=== PATIENT | female | born 2000 | race Caucasian/White ===

== ENCOUNTER 2023-11-07 00:29 | Inpatient (IN) | payer OTHER, MEDICAID, SELFPAY ==
[2023-11-07] VITALS (223 sets, daily range): BP systolic 84–129; BP diastolic 45–78; PULSE 57–103; RESP 14–32; TEMP 36.6–36.9; O2SAT 97–100; BMI 22.3; BMI 25.6
--- NOTE | 2023-11-07 00:47 | DI.RAD.S_ITS ---
PROCEDURE: XR CHEST 1V INDICATIONS: OD/AMS TECHNIQUE: One view of the chest was acquired. COMPARISON: None. FINDINGS: Surgical changes and devices: Nasogastric tube moved is present with distal tip projecting below the left hemidiaphragm. Endotracheal tube is present distal tip approximately 1.2 cm superior to the flores. Lungs and pleura: Lungs are clear. No pleural effusions or pneumothorax. Mediastinum: Mediastinal contours appear normal. Heart size is normal. Bones and chest wall: No suspicious bony lesions. Overlying soft tissues appear unremarkable. IMPRESSION: Support lines in appropriate position as above. Dictated by: Beverly Sanchez M.D. on 11/07/2023 at 1:23 Approved by: Beverly Sanchez M.D. on 11/07/2023 at 1:24
--- NOTE | 2023-11-07 00:47 | DI.CT.S_ITS ---
PROCEDURE: CT HEAD/BRAIN WO CON INDICATIONS: OD/AMS TECHNIQUE: Noncontrast 4.5 mm thick angled axial sections acquired from the foramen magnum to the vertex, with coronal and sagittal reformats. For radiation dose reduction, the following was used: automated exposure control, adjustment of mA and/or kV according to patient size. COMPARISON: None. FINDINGS: Image quality: Diagnostic. CSF spaces: Basal cisterns are patent. No extra-axial fluid collections. Ventricles are normal in size and shape. Brain: No midline shift. No intracranial masses or hemorrhage. Casey-white matter interface is normal. Skull and face: Calvarium and visualized facial bones are intact, without suspicious lesions. Sinuses: Visualized sinuses and mastoids are clear. IMPRESSION: No acute intracranial pathology. Dictated by: Beverly Sanchez M.D. on 11/07/2023 at 1:35 Approved by: Beverly Sanchez M.D. on 11/07/2023 at 1:36
--- NOTE | 2023-11-07 00:48 | EKG_ITS ---
[address] [address] Test Date: 2023-11-07 Pat Name: Neha Ulloa Department: [facility] Room: Gender: Female [employer] Helper: : 2000 Requested By: Order Number: [id number] Reading MD: Young Cai MD Measurements Intervals Rye Rate: 85 P: 52 WA: 174 QRS: 52 QRSD: 82 T: 24 QT: 422 QTc: 502 Interpretive Statements Normal sinus rhythm Prolonged QT NO PRIOR TRACING Electronically Signed On 11-07-2023 8:05:15 PDT by Young Cai MD
[2023-11-07] MEDS: NALOXONE 0.4 MG/ML VIAL IV (00:49)
[2023-11-07] MEDS: NALOXONE 0.4 MG/ML VIAL 1.6 MG IV (00:49)
--- NOTE | 2023-11-07 01:00 | PC.NURSE ---
Pt arrives by EMS. Medic states that pt was thrashing about and not cooperating with cares. Medicated with IM Ketamine. Pt arrived to ED with shallow respirations, not protecting airway, guppy breathing noted. Dr Parekh in room. 50 mg of Rocuronium administrated under the supervision of Dr Parekh. Pt intubated pt with help of RT. Tube is 7.5 and 24 at the teeth. Narcan attempted with no effect. OG tube placed and verified by Xray. Placed to low intermittent suction. Dark brown stomach contents noted.
[2023-11-07 01:02] LABS: Add Manual Diff / Slide Review NO; Basophils Absolute Auto 0 /uL (0-100); Basophils Percent Auto 0.3 % (0-2); Eosinophils Absolute Auto 0 /uL (0-450); Eosinophils Percent Auto 0.1 % (2-4); Hematocrit 37.1 % (36-46); Hemoglobin 12.7 g/dL (12.0-16.0); Lymphocytes Absolute Auto 3300 /uL (1100-4500); Lymphocytes Percent Auto 41.2 % (25-40); Mean Corpuscular HGB Conc 34.2 % (30-36); Mean Corpuscular Volume 90.8 fL (80-100); Monocytes Absolute Auto 900 /uL (0-900); Monocytes Percent Auto 11.9 % (3-14); Neutrophils Absolute Auto 3700 /uL (1500-7000); Neutrophils Percent Auto 46.5 % (50-75); Platelet Count 321 X10^3/uL (150-400); Red Blood Cell Count 4.09 X10^6/uL (4.0-5.2); Red Cell Distribution Width 13.7 % (11.6-14.8); White Blood Cell Count 7.9 X10^3/uL (4.5-11.0)
[2023-11-07 01:04] LABS: Acetaminophen < 10 ug/mL (10-30); Alanine Aminotransferase 20 IU/L (<35); Albumin 4.5 g/dL (3.5-5.0); Albumin Globulin Ratio 1.5 (1.0-2.8); Alkaline Phosphatase 64 U/L (38-126); Aspartate Aminotransferase 25 IU/L (14-36); BUN Creatinine Ratio 3.6 (6-22); Bilirubin Total 0.5 mg/dL (0.2-1.3); Blood Urea Nitrogen 3 mg/dL (7-17); Calcium 8.4 mg/dL (8.4-10.2); Carbon Dioxide 21 mmol/L (22-32); Chloride 111 mmol/L (98-107); Estimated Glomerular Filt Rate > 60 mL/min (>60); Globulin 3.1 g/dL (1.7-4.1); Glucose 99 mg/dL (70-100); HEMOLYSIS 18 (0-50); Potassium 3.2 mmol/L (3.4-5.1); Salicylate < 1.0 mg/dL (<20); Sodium 145 mmol/L (137-145); Total Protein 7.6 g/dL (6.3-8.2)
[2023-11-07] MEDS: SODIUM CHLORIDE 0.9% 1,000 ML 1000 ML IV (01:06)
[2023-11-07 01:09] LABS: Lactate (Lactic Acid) 4.6 mmol/L (0.7-2.1)
--- NOTE | 2023-11-07 01:10 | ED_ITS ---
HPI - Altered Mental Status <Trudi Parekh MD - Last Filed: 11/07/23 19:23> General Chief Complaint: Upper Respiratory Symptoms Stated Complaint: STEFAN Time Seen by Provider: 11/07/23 00:30 Source: EMS Mode of arrival: EMS History of Present Illness HPI narrative: 23-year-old female with unknown past medical history presents as an STEFAN with law enforcement. Patient was reportedly found outside rolling around on the ground and screaming. She was extremely agitated and required numerous law enforcement personnel to restrain the patient. She continued to be extremely agitated and not following commands and so EMS personnel administered 300 mg of IM ketamine for sedation. Patient arrived extremely somnolent, not following commands. Initially arrived as a Marcelle Sanford Related Data Allergies Allergy/AdvReac Type Severity Reaction Status Date / Time No Known Drug Allergies Allergy Verified 11/07/23 01:27 Exam <Trudi Parekh MD - Last Filed: 11/07/23 19:23> Initial Vital Signs Initial Vital Signs: Vital Signs Pulse Rate 94 H 11/07/23 00:36 Respiratory Rate 14 11/07/23 00:36 Blood Pressure 129/78 11/07/23 00:36 Pulse Oximetry 97 11/07/23 00:36 Oxygen Delivery Method Nasal Cannula 11/07/23 00:36 Oxygen Flow Rate 3 11/07/23 00:36 Const: Eyes closed, not responding to sternal rub, breathing spontaneously Cardiac: regular rate, regular rhythm RESP: Irregular, shallow MSK: Atraumatic, no deformity, pulses equal Skin: Warm, Dry, intact, no rashes Neuro: GCS 3 <Julio Chilel DO - Last Filed: 11/07/23 07:29> Initial Vital Signs Initial Vital Signs: Vital Signs Pulse Rate 94 H 11/07/23 00:36 Respiratory Rate 14 11/07/23 00:36 Blood Pressure 129/78 11/07/23 00:36 Pulse Oximetry 97 11/07/23 00:36 Oxygen Delivery Method Nasal Cannula 11/07/23 00:36 Oxygen Flow Rate 3 11/07/23 00:36 Procedures <Trudi Parekh MD - Last Filed: 11/07/23 19:23> Intubation Time out performed: Yes sedative: none paralytic: Rocuronium Mg Given: 50 Laryngoscope: Allie ET Tube Size: 7.5 ET Tube Uncuffed: No Tube Secured Depth (cm): 24 Tube Secured Location: teeth Tube Placement Confirmation: Visualized tube passing through cords, Equal breath sounds bilaterally, No breath sounds over epigastrium, Confirmation by capnometry and Chest Xray Patient Tolerated Procedure: Well and No complications Intubation Complications: none Course <Trudi Parekh MD - Last Filed: 11/07/23 19:23> Orders Ordered: ED Orders 11/07/23 11:32 Ventilator Order Chlorhexidine Gluconate (Chlorhexidine Gluconate 15 Ml Cup) 15 ml PO Q6HR [facility] Last Admin: 11/07/23 17:41 Dose: 15 ml Documented By: Admin: 11/07/23 13:56 Dose: 15 ml Documented By: Admin: 11/07/23 08:39 Dose: 15 ml Documented By: Enoxaparin Sodium (Enoxaparin 40 Mg/0.4 Ml Syringe) 40 mg SUBCUT DAILY [facility] Last Admin: 11/07/23 12:05 Dose: 40 mg Documented By: BARRY Propofol (Propofol) 1,000 mg in 100 mls @ 17.69 mls/hr IV TITRATE RAHUL; Protocol Last Titration: 11/07/23 16:55 Dose: 35 mcg/kg/min, 12.383 mls/hr Documented By: Admin: 11/07/23 15:14 Dose: 40 mcg/kg/min, 14.152 mls/hr Documented By: Titration: 11/07/23 15:14 Dose: Infused Documented By: Titration: 11/07/23 13:30 Dose: 40 mcg/kg/min, 14.152 mls/hr Documented By: Admin: 11/07/23 11:56 Dose: 50 mcg/kg/min, 17.69 mls/hr Documented By: Titration: 11/07/23 11:56 Dose: Infused Documented By: Titration: 11/07/23 11:17 Dose: 70 mcg/kg/min, 24.766 mls/hr Documented By: Admin: 11/07/23 11:05 Dose: 60 mcg/kg/min, 21.228 mls/hr Documented By: Sodium Chloride (Normal Saline 0.9%) 1,000 mls @ 75 mls/hr IV CONT [facility] Last Admin: 11/07/23 11:59 Dose: 75 mls/hr Documented By: BARRY Fentanyl 1,000 mcg/ Dextrose 250 mls @ 10.319 mls/hr IV TITRATE RAHUL; Protocol Last Admin: 11/07/23 11:57 Dose: 0.7 mcg/kg/hr, 10.319 mls/hr Documented By: BARRY dexmedeTOMIDine in 0.9 % NaCL (Precedex) 400 mcg in 100 mls @ 2.948 mls/hr IV TITRATE RAHUL; Protocol Last Admin: 11/07/23 16:53 Dose: 1 mcg/kg/hr, 14.742 mls/hr Documented By: Titration: 11/07/23 16:53 Dose: Infused Documented By: Titration: 11/07/23 12:04 Dose: 1 mcg/kg/hr, 14.742 mls/hr Documented By: Admin: 11/07/23 12:02 Dose: 1 mcg/kg/hr, 14.742 mls/hr Documented By: BARRY Naloxone HCl (Naloxone 0.4 Mg/Ml Vial) 0.2 mg IV Q2MIN PRN PRN Reason: Opiate Reversal Discontinued Medications Folic Acid (Folic Acid 1 Mg Tablet) 1 mg PO NOW ONE Stop: 11/07/23 01:12 Last Admin: 11/07/23 07:24 Dose: Not Given Documented By: Sodium Chloride (Normal Saline 0.9%) 1,000 mls @ 1,000 mls/hr IV BOLUS ONE Stop: 11/07/23 01:46 Last Infusion: 11/07/23 03:03 Dose: Infused Documented By: Admin: 11/07/23 01:06 Dose: 1,000 mls/hr Documented By: PILLO Propofol (Propofol) 1,000 mg in 100 mls @ 17.69 mls/hr IV TITRATE RAHUL; Protocol Last Titration: 11/07/23 10:46 Dose: Infused Documented By: Titration: 11/07/23 10:45 Dose: Infused Documented By: Titration: 11/07/23 09:51 Dose: 50 mcg/kg/min, 17.69 mls/hr Documented By: Titration: 11/07/23 09:27 Dose: 50 mcg/kg/min, 17.69 mls/hr Documented By: Titration: 11/07/23 08:27 Dose: 40 mcg/kg/min, 14.152 mls/hr Documented By: Titration: 11/07/23 07:56 Dose: 20 mcg/kg/min, 7.076 mls/hr Documented By: Titration: 11/07/23 07:20 Dose: 15 mcg/kg/min, 5.307 mls/hr Documented By: Admin: 11/07/23 06:35 Dose: 20 mcg/kg/min, 7.076 mls/hr Documented By: Titration: 11/07/23 06:35 Dose: Infused Documented By: Admin: 11/07/23 03:21 Dose: 35 mcg/kg/min, 12.383 mls/hr Documented By: Titration: 11/07/23 03:21 Dose: Infused Documented By: Admin: 11/07/23 02:15 Dose: 15 mcg/kg/min, 5.307 mls/hr Documented By: Thiamine HCl 200 mg/ Sodium (Chloride) 102 mls @ 408 mls/hr IV NOW ONE Stop: 11/07/23 01:12 Last Infusion: 11/07/23 03:03 Dose: Infused Documented By: Admin: 11/07/23 01:59 Dose: 408 mls/hr Documented By: POTASSIUM CHLORIDE IN WATER (Potassium Cl 10 Meq/100 Ml Tiffani) 10 meq in 100 mls @ 100 mls/hr IV Q1H RAHUL Stop: 11/07/23 18:29 Last Admin: 11/07/23 17:37 Dose: 100 mls/hr Documented By: Infusion: 11/07/23 17:36 Dose: Infused Documented By: Admin: 11/07/23 16:36 Dose: 100 mls/hr Documented By: Infusion: 11/07/23 16:35 Dose: Infused Documented By: Admin: 11/07/23 15:35 Dose: 100 mls/hr Documented By: Infusion: 11/07/23 15:34 Dose: Infused Documented By: Admin: 11/07/23 14:34 Dose: 100 mls/hr Documented By: BARRY Naloxone HCl (Naloxone 1 Mg/Ml Syringe) 2 mg IV NOW ONE Stop: 11/07/23 00:48 Last Admin: 11/07/23 01:10 Dose: Not Given Documented By: PILLO Pantoprazole Sodium (Pantoprazole 40 Mg Vial) 80 mg IV NOW ONE Stop: 11/07/23 05:18 Last Admin: 11/07/23 05:21 Dose: 80 mg Documented By: Vital Signs Vital signs: Vital Signs - 8 hr 11/07/23 00:36 11/07/23 01:21 11/07/23 01:32 Pulse Rate 94 H Respiratory Rate 14 Blood Pressure 129/78 97/57 L Pulse Oximetry 97 99 Oxygen Delivery Method Nasal Cannula Mechanical Ventilation Oxygen Flow Rate 3 Fraction of Inspired Oxygen 11/07/23 01:32 11/07/23 01:34 11/07/23 01:34 Pulse Rate 87 86 Respiratory Rate 20 20 Blood Pressure 97/53 L Pulse Oximetry 100 100 Oxygen Delivery Method Mechanical Ventilation Mechanical Ventilation Oxygen Flow Rate Fraction of Inspired Oxygen 11/07/23 01:36 11/07/23 01:36 11/07/23 01:38 Pulse Rate 82 Respiratory Rate 20 Blood Pressure 96/55 L 104/57 L Pulse Oximetry 100 Oxygen Delivery Method Oxygen Flow Rate Fraction of Inspired Oxygen 11/07/23 01:38 11/07/23 01:40 11/07/23 01:40 Pulse Rate 83 86 Respiratory Rate 20 20 Blood Pressure 103/59 L Pulse Oximetry 100 100 Oxygen Delivery Method Oxygen Flow Rate Fraction of Inspired Oxygen 11/07/23 01:42 11/07/23 01:42 11/07/23 01:44 Pulse Rate 83 85 Respiratory Rate 26 H 20 Blood Pressure 103/59 L Pulse Oximetry 100 100 Oxygen Delivery Method Mechanical Ventilation Oxygen Flow Rate Fraction of Inspired Oxygen 11/07/23 01:44 11/07/23 01:46 11/07/23 01:46 Pulse Rate 82 Respiratory Rate 20 Blood Pressure 105/57 L 102/55 L Pulse Oximetry 100 Oxygen Delivery Method Mechanical Ventilation Oxygen Flow Rate Fraction of Inspired Oxygen 11/07/23 01:48 11/07/23 01:48 11/07/23 01:50 Pulse Rate 84 Respiratory Rate 32 H Blood Pressure 102/63 107/65 Pulse Oximetry 99 Oxygen Delivery Method Oxygen Flow Rate Fraction of Inspired Oxygen 11/07/23 01:50 11/07/23 01:52 11/07/23 01:52 Pulse Rate 97 H 89 Respiratory Rate 20 25 H Blood Pressure 105/61 Pulse Oximetry 99 99 Oxygen Delivery Method Oxygen Flow Rate Fraction of Inspired Oxygen 11/07/23 01:54 11/07/23 01:54 11/07/23 01:56 Pulse Rate 93 H 87 Respiratory Rate 22 20 Blood Pressure 108/70 Pulse Oximetry 99 99 Oxygen Delivery Method Oxygen Flow Rate Fraction of Inspired Oxygen 11/07/23 01:56 11/07/23 01:58 11/07/23 01:58 Pulse Rate 93 H Respiratory Rate 25 H Blood Pressure 103/66 109/61 Pulse Oximetry 99 Oxygen Delivery Method Oxygen Flow Rate Fraction of Inspired Oxygen 11/07/23 02:00 11/07/23 02:00 11/07/23 02:02 Pulse Rate 94 H 90 Respiratory Rate 20 20 Blood Pressure 103/55 L Pulse Oximetry 99 100 Oxygen Delivery Method Oxygen Flow Rate Fraction of Inspired Oxygen 11/07/23 02:02 11/07/23 02:04 11/07/23 02:04 Pulse Rate 88 Respiratory Rate 20 Blood Pressure 96/53 L 94/53 L Pulse Oximetry 100 Oxygen Delivery Method Oxygen Flow Rate Fraction of Inspired Oxygen 11/07/23 02:06 11/07/23 02:06 11/07/23 02:08 Pulse Rate 90 Respiratory Rate 20 Blood Pressure 92/53 L 94/52 L Pulse Oximetry 100 Oxygen Delivery Method Oxygen Flow Rate Fraction of Inspired Oxygen 11/07/23 02:08 11/07/23 02:10 11/07/23 02:10 Pulse Rate 90 87 Respiratory Rate 20 20 Blood Pressure 95/52 L Pulse Oximetry 100 100 Oxygen Delivery Method Oxygen Flow Rate Fraction of Inspired Oxygen 11/07/23 02:12 11/07/23 02:12 11/07/23 02:14 Pulse Rate 87 89 Respiratory Rate 20 20 Blood Pressure 98/54 L Pulse Oximetry 100 99 Oxygen Delivery Method Oxygen Flow Rate Fraction of Inspired Oxygen 11/07/23 02:14 11/07/23 02:16 11/07/23 02:16 Pulse Rate 88 Respiratory Rate 20 Blood Pressure 96/57 L 92/55 L Pulse Oximetry 100 Oxygen Delivery Method Oxygen Flow Rate Fraction of Inspired Oxygen 11/07/23 02:18 11/07/23 02:18 11/07/23 02:20 Pulse Rate 87 88 Respiratory Rate 20 20 Blood Pressure 96/54 L Pulse Oximetry 100 100 Oxygen Delivery Method Oxygen Flow Rate Fraction of Inspired Oxygen 11/07/23 02:20 11/07/23 02:22 11/07/23 02:22 Pulse Rate 87 Respiratory Rate 20 Blood Pressure 95/58 L 96/57 L Pulse Oximetry 100 Oxygen Delivery Method Oxygen Flow Rate Fraction of Inspired Oxygen 11/07/23 02:24 11/07/23 02:24 11/07/23 02:26 Pulse Rate 87 87 Respiratory Rate 20 20 Blood Pressure 95/56 L Pulse Oximetry 100 100 Oxygen Delivery Method Oxygen Flow Rate Fraction of Inspired Oxygen 11/07/23 02:26 11/07/23 02:28 11/07/23 02:28 Pulse Rate 88 Respiratory Rate 20 Blood Pressure 97/56 L 99/58 L Pulse Oximetry 100 Oxygen Delivery Method Oxygen Flow Rate Fraction of Inspired Oxygen 11/07/23 02:29 11/07/23 02:30 11/07/23 02:30 Pulse Rate 86 Respiratory Rate 20 Blood Pressure 97/56 L Pulse Oximetry 100 Oxygen Delivery Method Oxygen Flow Rate Fraction of Inspired Oxygen 40 11/07/23 02:32 11/07/23 02:32 11/07/23 02:34 Pulse Rate 85 84 Respiratory Rate 20 20 Blood Pressure 96/55 L Pulse Oximetry 100 100 Oxygen Delivery Method Oxygen Flow Rate Fraction of Inspired Oxygen 11/07/23 02:34 11/07/23 02:36 11/07/23 02:36 Pulse Rate 82 Respiratory Rate 20 Blood Pressure 94/55 L 93/54 L Pulse Oximetry 100 Oxygen Delivery Method Oxygen Flow Rate Fraction of Inspired Oxygen 11/07/23 02:38 11/07/23 02:38 11/07/23 02:40 Pulse Rate 81 Respiratory Rate 20 Blood Pressure 95/54 L 95/53 L Pulse Oximetry 100 Oxygen Delivery Method Oxygen Flow Rate Fraction of Inspired Oxygen 11/07/23 02:40 11/07/23 02:42 11/07/23 02:42 Pulse Rate 80 79 Respiratory Rate 20 20 Blood Pressure 95/55 L Pulse Oximetry 100 100 Oxygen Delivery Method Oxygen Flow Rate Fraction of Inspired Oxygen 11/07/23 02:44 11/07/23 02:44 11/07/23 02:46 Pulse Rate 79 77 Respiratory Rate 20 20 Blood Pressure 96/54 L Pulse Oximetry 100 100 Oxygen Delivery Method Oxygen Flow Rate Fraction of Inspired Oxygen 11/07/23 02:46 11/07/23 02:48 11/07/23 02:48 Pulse Rate 83 Respiratory Rate 20 Blood Pressure 96/56 L 103/67 Pulse Oximetry 100 Oxygen Delivery Method Oxygen Flow Rate Fraction of Inspired Oxygen 11/07/23 02:50 11/07/23 02:50 11/07/23 02:52 Pulse Rate 90 87 Respiratory Rate 18 20 Blood Pressure 101/66 Pulse Oximetry 100 100 Oxygen Delivery Method Oxygen Flow Rate Fraction of Inspired Oxygen 11/07/23 02:52 11/07/23 02:54 11/07/23 02:54 Pulse Rate 86 Respiratory Rate 20 Blood Pressure 101/62 99/58 L Pulse Oximetry 100 Oxygen Delivery Method Oxygen Flow Rate Fraction of Inspired Oxygen 11/07/23 02:56 11/07/23 02:56 11/07/23 02:58 Pulse Rate 87 88 Respiratory Rate 20 20 Blood Pressure 97/55 L Pulse Oximetry 100 100 Oxygen Delivery Method Oxygen Flow Rate Fraction of Inspired Oxygen 11/07/23 02:58 11/07/23 03:00 11/07/23 03:00 Pulse Rate 85 Respiratory Rate 20 Blood Pressure 97/55 L 98/55 L Pulse Oximetry 100 Oxygen Delivery Method Oxygen Flow Rate Fraction of Inspired Oxygen 11/07/23 03:02 11/07/23 03:02 11/07/23 03:04 Pulse Rate 87 85 Respiratory Rate 20 20 Blood Pressure 101/60 Pulse Oximetry 100 100 Oxygen Delivery Method Oxygen Flow Rate Fraction of Inspired Oxygen 11/07/23 03:04 11/07/23 03:06 11/07/23 03:06 Pulse Rate 85 Respiratory Rate 20 Blood Pressure 98/57 L 104/57 L Pulse Oximetry 100 Oxygen Delivery Method Oxygen Flow Rate Fraction of Inspired Oxygen 11/07/23 03:08 11/07/23 03:08 11/07/23 03:10 Pulse Rate 86 Respiratory Rate 20 Blood Pressure 102/57 L 104/59 L Pulse Oximetry 100 Oxygen Delivery Method Oxygen Flow Rate Fraction of Inspired Oxygen 11/07/23 03:10 11/07/23 03:12 11/07/23 03:12 Pulse Rate 86 84 Respiratory Rate 20 20 Blood Pressure 104/59 L Pulse Oximetry 100 100 Oxygen Delivery Method Oxygen Flow Rate Fraction of Inspired Oxygen 11/07/23 03:14 11/07/23 03:14 11/07/23 03:16 Pulse Rate 84 85 Respiratory Rate 20 24 Blood Pressure 103/58 L Pulse Oximetry 100 100 Oxygen Delivery Method Oxygen Flow Rate Fraction of Inspired Oxygen 11/07/23 03:16 11/07/23 03:18 11/07/23 03:18 Pulse Rate 87 Respiratory Rate 20 Blood Pressure 99/59 L 100/59 L Pulse Oximetry 100 Oxygen Delivery Method Oxygen Flow Rate Fraction of Inspired Oxygen 11/07/23 03:20 11/07/23 03:20 11/07/23 03:22 Pulse Rate 86 Respiratory Rate 20 Blood Pressure 98/57 L 95/57 L Pulse Oximetry 100 Oxygen Delivery Method Oxygen Flow Rate Fraction of Inspired Oxygen 11/07/23 03:22 11/07/23 03:46 11/07/23 03:46 Pulse Rate 90 86 Respiratory Rate 20 20 Blood Pressure 99/55 L Pulse Oximetry 100 100 Oxygen Delivery Method Oxygen Flow Rate Fraction of Inspired Oxygen 11/07/23 03:48 11/07/23 03:48 11/07/23 03:50 Pulse Rate 87 87 Respiratory Rate 20 20 Blood Pressure 102/56 L Pulse Oximetry 100 100 Oxygen Delivery Method Oxygen Flow Rate Fraction of Inspired Oxygen 11/07/23 03:50 11/07/23 03:52 11/07/23 03:52 Pulse Rate 87 Respiratory Rate 21 Blood Pressure 100/58 L 102/60 Pulse Oximetry 100 Oxygen Delivery Method Oxygen Flow Rate Fraction of Inspired Oxygen 11/07/23 03:54 11/07/23 03:54 11/07/23 03:56 Pulse Rate 90 84 Respiratory Rate 19 20 Blood Pressure 108/57 L Pulse Oximetry 100 100 Oxygen Delivery Method Oxygen Flow Rate Fraction of Inspired Oxygen 11/07/23 03:56 11/07/23 03:58 11/07/23 03:58 Pulse Rate 85 Respiratory Rate 20 Blood Pressure 95/54 L 95/51 L Pulse Oximetry 100 Oxygen Delivery Method Oxygen Flow Rate Fraction of Inspired Oxygen 11/07/23 04:00 11/07/23 04:00 11/07/23 04:02 Pulse Rate 86 86 Respiratory Rate 20 20 Blood Pressure 99/58 L Pulse Oximetry 100 100 Oxygen Delivery Method Oxygen Flow Rate Fraction of Inspired Oxygen 11/07/23 04:02 11/07/23 04:04 11/07/23 04:04 Pulse Rate 87 Respiratory Rate 20 Blood Pressure 100/55 L 103/57 L Pulse Oximetry 100 Oxygen Delivery Method Oxygen Flow Rate Fraction of Inspired Oxygen 11/07/23 04:06 11/07/23 04:06 11/07/23 04:08 Pulse Rate 86 86 Respiratory Rate 20 20 Blood Pressure 104/58 L Pulse Oximetry 100 100 Oxygen Delivery Method Oxygen Flow Rate Fraction of Inspired Oxygen 11/07/23 04:08 11/07/23 04:10 11/07/23 04:10 Pulse Rate 87 Respiratory Rate 20 Blood Pressure 106/59 L 106/63 Pulse Oximetry 100 Oxygen Delivery Method Oxygen Flow Rate Fraction of Inspired Oxygen 11/07/23 04:12 11/07/23 04:12 11/07/23 04:14 Pulse Rate 87 86 Respiratory Rate 20 20 Blood Pressure 108/64 Pulse Oximetry 100 100 Oxygen Delivery Method Oxygen Flow Rate Fraction of Inspired Oxygen 11/07/23 04:14 11/07/23 04:16 11/07/23 04:16 Pulse Rate 86 Respiratory Rate 20 Blood Pressure 104/62 103/59 L Pulse Oximetry 100 Oxygen Delivery Method Oxygen Flow Rate Fraction of Inspired Oxygen 11/07/23 04:18 11/07/23 04:18 11/07/23 04:20 Pulse Rate 87 89 Respiratory Rate 20 20 Blood Pressure 101/58 L Pulse Oximetry 100 100 Oxygen Delivery Method Oxygen Flow Rate Fraction of Inspired Oxygen 11/07/23 04:20 11/07/23 04:22 11/07/23 04:22 Pulse Rate 89 Respiratory Rate 20 Blood Pressure 101/59 L 102/59 L Pulse Oximetry 100 Oxygen Delivery Method Oxygen Flow Rate Fraction of Inspired Oxygen 11/07/23 04:24 11/07/23 04:24 11/07/23 04:26 Pulse Rate 89 87 Respiratory Rate 20 20 Blood Pressure 103/58 L Pulse Oximetry 100 100 Oxygen Delivery Method Oxygen Flow Rate Fraction of Inspired Oxygen 11/07/23 04:26 11/07/23 04:28 11/07/23 04:28 Pulse Rate 86 Respiratory Rate 20 Blood Pressure 104/61 105/59 L Pulse Oximetry 100 Oxygen Delivery Method Oxygen Flow Rate Fraction of Inspired Oxygen 11/07/23 04:30 11/07/23 04:30 11/07/23 04:32 Pulse Rate 88 90 Respiratory Rate 20 20 Blood Pressure 106/61 Pulse Oximetry 100 100 Oxygen Delivery Method Oxygen Flow Rate Fraction of Inspired Oxygen 11/07/23 04:32 11/07/23 04:34 11/07/23 04:34 Pulse Rate 84 Respiratory Rate 20 Blood Pressure 108/61 98/53 L Pulse Oximetry 100 Oxygen Delivery Method Oxygen Flow Rate Fraction of Inspired Oxygen 11/07/23 04:56 11/07/23 04:56 11/07/23 04:58 Pulse Rate 83 81 Respiratory Rate 20 20 Blood Pressure 107/61 Pulse Oximetry 100 100 Oxygen Delivery Method Oxygen Flow Rate Fraction of Inspired Oxygen 11/07/23 04:58 11/07/23 05:00 11/07/23 05:00 Pulse Rate 80 Respiratory Rate 20 Blood Pressure 100/56 L 96/54 L Pulse Oximetry 100 Oxygen Delivery Method Oxygen Flow Rate Fraction of Inspired Oxygen 11/07/23 05:02 11/07/23 05:02 11/07/23 05:04 Pulse Rate 80 80 Respiratory Rate 20 20 Blood Pressure 92/51 L Pulse Oximetry 100 100 Oxygen Delivery Method Oxygen Flow Rate Fraction of Inspired Oxygen 11/07/23 05:04 11/07/23 05:06 11/07/23 05:06 Pulse Rate 80 Respiratory Rate 20 Blood Pressure 92/50 L 95/52 L Pulse Oximetry 100 Oxygen Delivery Method Oxygen Flow Rate Fraction of Inspired Oxygen 11/07/23 05:08 11/07/23 05:08 11/07/23 05:10 Pulse Rate 80 80 Respiratory Rate 20 20 Blood Pressure 93/51 L Pulse Oximetry 99 99 Oxygen Delivery Method Oxygen Flow Rate Fraction of Inspired Oxygen 11/07/23 05:10 11/07/23 05:12 11/07/23 05:12 Pulse Rate 83 Respiratory Rate 20 Blood Pressure 95/53 L 97/54 L Pulse Oximetry 100 Oxygen Delivery Method Oxygen Flow Rate Fraction of Inspired Oxygen 11/07/23 05:14 11/07/23 05:14 11/07/23 05:16 Pulse Rate 87 92 H Respiratory Rate 20 19 Blood Pressure 108/67 Pulse Oximetry 100 100 Oxygen Delivery Method Oxygen Flow Rate Fraction of Inspired Oxygen 11/07/23 05:16 11/07/23 05:18 11/07/23 05:18 Pulse Rate 91 H Respiratory Rate 20 Blood Pressure 105/68 103/61 Pulse Oximetry 100 Oxygen Delivery Method Oxygen Flow Rate Fraction of Inspired Oxygen 11/07/23 05:20 11/07/23 05:20 11/07/23 05:22 Pulse Rate 87 85 Respiratory Rate 20 20 Blood Pressure 94/52 L Pulse Oximetry 100 99 Oxygen Delivery Method Oxygen Flow Rate Fraction of Inspired Oxygen 11/07/23 05:22 11/07/23 05:23 11/07/23 05:23 Pulse Rate 85 Respiratory Rate 20 Blood Pressure 90/55 L 90/55 L Pulse Oximetry 99 Oxygen Delivery Method Oxygen Flow Rate Fraction of Inspired Oxygen 11/07/23 05:24 11/07/23 05:24 11/07/23 05:26 Pulse Rate 84 83 Respiratory Rate 20 20 Blood Pressure 89/54 L Pulse Oximetry 99 99 Oxygen Delivery Method Oxygen Flow Rate Fraction of Inspired Oxygen 11/07/23 05:26 11/07/23 05:28 11/07/23 05:28 Pulse Rate 82 Respiratory Rate 20 Blood Pressure 89/50 L 91/52 L Pulse Oximetry 99 Oxygen Delivery Method Oxygen Flow Rate Fraction of Inspired Oxygen 11/07/23 05:30 11/07/23 05:30 11/07/23 05:32 Pulse Rate 84 80 Respiratory Rate 20 20 Blood Pressure 89/51 L Pulse Oximetry 99 100 Oxygen Delivery Method Oxygen Flow Rate Fraction of Inspired Oxygen 11/07/23 05:32 11/07/23 05:34 11/07/23 05:34 Pulse Rate 79 Respiratory Rate 20 Blood Pressure 93/54 L 89/54 L Pulse Oximetry 100 Oxygen Delivery Method Oxygen Flow Rate Fraction of Inspired Oxygen 11/07/23 05:36 11/07/23 05:36 11/07/23 05:38 Pulse Rate 79 Respiratory Rate 20 Blood Pressure 87/52 L 87/52 L Pulse Oximetry 100 Oxygen Delivery Method Oxygen Flow Rate Fraction of Inspired Oxygen 11/07/23 05:38 11/07/23 05:40 11/07/23 05:40 Pulse Rate 78 78 Respiratory Rate 20 20 Blood Pressure 86/51 L Pulse Oximetry 100 99 Oxygen Delivery Method Oxygen Flow Rate Fraction of Inspired Oxygen 11/07/23 05:42 11/07/23 05:42 11/07/23 05:45 Pulse Rate 78 89 Respiratory Rate 20 20 Blood Pressure 89/51 L Pulse Oximetry 100 100 Oxygen Delivery Method Oxygen Flow Rate Fraction of Inspired Oxygen 11/07/23 05:45 11/07/23 05:46 11/07/23 05:46 Pulse Rate 88 Respiratory Rate 20 Blood Pressure 99/61 100/58 L Pulse Oximetry 100 Oxygen Delivery Method Oxygen Flow Rate Fraction of Inspired Oxygen 11/07/23 05:48 11/07/23 05:48 11/07/23 05:50 Pulse Rate 85 84 Respiratory Rate 20 20 Blood Pressure 98/57 L Pulse Oximetry 100 100 Oxygen Delivery Method Oxygen Flow Rate Fraction of Inspired Oxygen 11/07/23 05:50 11/07/23 05:52 11/07/23 05:52 Pulse Rate 84 Respiratory Rate 20 Blood Pressure 97/56 L 95/52 L Pulse Oximetry 100 Oxygen Delivery Method Oxygen Flow Rate Fraction of Inspired Oxygen 11/07/23 06:28 11/07/23 06:28 11/07/23 06:30 Pulse Rate 93 H 88 Respiratory Rate 20 20 Blood Pressure 105/66 Pulse Oximetry 100 100 Oxygen Delivery Method Oxygen Flow Rate Fraction of Inspired Oxygen 11/07/23 06:30 11/07/23 06:32 11/07/23 06:32 Pulse Rate 85 Respiratory Rate 20 Blood Pressure 106/64 100/60 Pulse Oximetry 100 Oxygen Delivery Method Oxygen Flow Rate Fraction of Inspired Oxygen 11/07/23 06:34 11/07/23 06:34 11/07/23 06:36 Pulse Rate 84 Respiratory Rate 20 Blood Pressure 99/60 101/58 L Pulse Oximetry 100 Oxygen Delivery Method Oxygen Flow Rate Fraction of Inspired Oxygen 11/07/23 06:36 11/07/23 06:38 11/07/23 06:38 Pulse Rate 83 82 Respiratory Rate 20 20 Blood Pressure 101/58 L Pulse Oximetry 100 100 Oxygen Delivery Method Oxygen Flow Rate Fraction of Inspired Oxygen 11/07/23 06:40 11/07/23 06:40 11/07/23 06:42 Pulse Rate 81 84 Respiratory Rate 20 23 Blood Pressure 101/57 L Pulse Oximetry 100 100 Oxygen Delivery Method Oxygen Flow Rate Fraction of Inspired Oxygen 11/07/23 06:42 11/07/23 06:44 11/07/23 06:44 Pulse Rate 90 Respiratory Rate 20 Blood Pressure 88/57 L 101/55 L Pulse Oximetry 100 Oxygen Delivery Method Oxygen Flow Rate Fraction of Inspired Oxygen 11/07/23 06:46 11/07/23 06:46 11/07/23 06:48 Pulse Rate 85 89 Respiratory Rate 21 Blood Pressure 94/54 L Pulse Oximetry 100 Oxygen Delivery Method Oxygen Flow Rate Fraction of Inspired Oxygen 11/07/23 06:48 11/07/23 06:50 11/07/23 06:50 Pulse Rate 88 Respiratory Rate 20 Blood Pressure 91/57 L 103/63 Pulse Oximetry 100 Oxygen Delivery Method Oxygen Flow Rate Fraction of Inspired Oxygen 11/07/23 06:52 11/07/23 06:52 11/07/23 06:54 Pulse Rate 83 85 Respiratory Rate 20 20 Blood Pressure 103/59 L Pulse Oximetry 100 100 Oxygen Delivery Method Oxygen Flow Rate Fraction of Inspired Oxygen 11/07/23 06:54 11/07/23 06:56 11/07/23 06:56 Pulse Rate 83 Respiratory Rate 20 Blood Pressure 100/57 L 94/54 L Pulse Oximetry 100 Oxygen Delivery Method Oxygen Flow Rate Fraction of Inspired Oxygen 11/07/23 06:58 11/07/23 06:58 11/07/23 07:00 Pulse Rate 82 Respiratory Rate 20 Blood Pressure 94/54 L 91/52 L Pulse Oximetry 100 Oxygen Delivery Method Oxygen Flow Rate Fraction of Inspired Oxygen 11/07/23 07:00 11/07/23 07:02 11/07/23 07:02 Pulse Rate 81 80 Respiratory Rate 20 20 Blood Pressure 89/50 L Pulse Oximetry 100 100 Oxygen Delivery Method Oxygen Flow Rate Fraction of Inspired Oxygen 11/07/23 07:04 11/07/23 07:04 11/07/23 07:06 Pulse Rate 80 79 Respiratory Rate 20 20 Blood Pressure 92/52 L Pulse Oximetry 100 100 Oxygen Delivery Method Oxygen Flow Rate Fraction of Inspired Oxygen 11/07/23 07:06 11/07/23 07:08 11/07/23 07:08 Pulse Rate 78 Respiratory Rate 20 Blood Pressure 89/50 L 93/50 L Pulse Oximetry 100 Oxygen Delivery Method Oxygen Flow Rate Fraction of Inspired Oxygen 11/07/23 07:10 11/07/23 07:10 11/07/23 07:12 Pulse Rate 86 91 H Respiratory Rate 20 Blood Pressure 98/58 L Pulse Oximetry 100 100 Oxygen Delivery Method Oxygen Flow Rate Fraction of Inspired Oxygen 11/07/23 07:12 11/07/23 07:15 11/07/23 07:15 Pulse Rate 85 Respiratory Rate 20 Blood Pressure 103/64 105/65 Pulse Oximetry 100 Oxygen Delivery Method Oxygen Flow Rate Fraction of Inspired Oxygen 11/07/23 07:20 11/07/23 07:20 Pulse Rate 82 Respiratory Rate 20 Blood Pressure 99/60 Pulse Oximetry 100 Oxygen Delivery Method Oxygen Flow Rate Fraction of Inspired Oxygen <Julio Chilel DO - Last Filed: 11/07/23 07:29> Orders Ordered: ED Orders 11/07/23 11:32 Ventilator Order Chlorhexidine Gluconate (Chlorhexidine Gluconate 15 Ml Cup) 15 ml PO Q6HR RAHUL Last Admin: 11/07/23 17:41 Dose: 15 ml Documented By: Admin: 11/07/23 13:56 Dose: 15 ml Documented By: Admin: 11/07/23 08:39 Dose: 15 ml Documented By: Enoxaparin Sodium (Enoxaparin 40 Mg/0.4 Ml Syringe) 40 mg SUBCUT DAILY RAHUL Last Admin: 11/07/23 12:05 Dose: 40 mg Documented By: BARRY Propofol (Propofol) 1,000 mg in 100 mls @ 17.69 mls/hr IV TITRATE RAHUL; Protocol Last Titration: 11/07/23 16:55 Dose: 35 mcg/kg/min, 12.383 mls/hr Documented By: Admin: 11/07/23 15:14 Dose: 40 mcg/kg/min, 14.152 mls/hr Documented By: Titration: 11/07/23 15:14 Dose: Infused Documented By: Titration: 11/07/23 13:30 Dose: 40 mcg/kg/min, 14.152 mls/hr Documented By: Admin: 11/07/23 11:56 Dose: 50 mcg/kg/min, 17.69 mls/hr Documented By: Titration: 11/07/23 11:56 Dose: Infused Documented By: Titration: 11/07/23 11:17 Dose: 70 mcg/kg/min, 24.766 mls/hr Documented By: Admin: 11/07/23 11:05 Dose: 60 mcg/kg/min, 21.228 mls/hr Documented By: Sodium Chloride (Normal Saline 0.9%) 1,000 mls @ 75 mls/hr IV CONT RAHUL Last Admin: 11/07/23 11:59 Dose: 75 mls/hr Documented By: BARRY Fentanyl 1,000 mcg/ Dextrose 250 mls @ 10.319 mls/hr IV TITRATE RAHUL; Protocol Last Admin: 11/07/23 11:57 Dose: 0.7 mcg/kg/hr, 10.319 mls/hr Documented By: BARRY dexmedeTOMIDine in 0.9 % NaCL (Precedex) 400 mcg in 100 mls @ 2.948 mls/hr IV TITRATE RAHUL; Protocol Last Admin: 11/07/23 16:53 Dose: 1 mcg/kg/hr, 14.742 mls/hr Documented By: Titration: 11/07/23 16:53 Dose: Infused Documented By: Titration: 11/07/23 12:04 Dose: 1 mcg/kg/hr, 14.742 mls/hr Documented By: Admin: 11/07/23 12:02 Dose: 1 mcg/kg/hr, 14.742 mls/hr Documented By: BARRY Naloxone HCl (Naloxone 0.4 Mg/Ml Vial) 0.2 mg IV Q2MIN PRN PRN Reason: Opiate Reversal Discontinued Medications Folic Acid (Folic Acid 1 Mg Tablet) 1 mg PO NOW ONE Stop: 11/07/23 01:12 Last Admin: 11/07/23 07:24 Dose: Not Given Documented By: Sodium Chloride (Normal Saline 0.9%) 1,000 mls @ 1,000 mls/hr IV BOLUS ONE Stop: 11/07/23 01:46 Last Infusion: 11/07/23 03:03 Dose: Infused Documented By: Admin: 11/07/23 01:06 Dose: 1,000 mls/hr Documented By: PILLO Propofol (Propofol) 1,000 mg in 100 mls @ 17.69 mls/hr IV TITRATE RAHUL; Protocol Last Titration: 11/07/23 10:46 Dose: Infused Documented By: Titration: 11/07/23 10:45 Dose: Infused Documented By: Titration: 11/07/23 09:51 Dose: 50 mcg/kg/min, 17.69 mls/hr Documented By: Titration: 11/07/23 09:27 Dose: 50 mcg/kg/min, 17.69 mls/hr Documented By: Titration: 11/07/23 08:27 Dose: 40 mcg/kg/min, 14.152 mls/hr Documented By: Titration: 11/07/23 07:56 Dose: 20 mcg/kg/min, 7.076 mls/hr Documented By: Titration: 11/07/23 07:20 Dose: 15 mcg/kg/min, 5.307 mls/hr Documented By: Admin: 11/07/23 06:35 Dose: 20 mcg/kg/min, 7.076 mls/hr Documented By: Titration: 11/07/23 06:35 Dose: Infused Documented By: Admin: 11/07/23 03:21 Dose: 35 mcg/kg/min, 12.383 mls/hr Documented By: Titration: 11/07/23 03:21 Dose: Infused Documented By: Admin: 11/07/23 02:15 Dose: 15 mcg/kg/min, 5.307 mls/hr Documented By: Thiamine HCl 200 mg/ Sodium (Chloride) 102 mls @ 408 mls/hr IV NOW ONE Stop: 11/07/23 01:12 Last Infusion: 11/07/23 03:03 Dose: Infused Documented By: Admin: 11/07/23 01:59 Dose: 408 mls/hr Documented By: POTASSIUM CHLORIDE IN WATER (Potassium Cl 10 Meq/100 Ml Tiffani) 10 meq in 100 mls @ 100 mls/hr IV Q1H RAHUL Stop: 11/07/23 18:29 Last Admin: 11/07/23 17:37 Dose: 100 mls/hr Documented By: Infusion: 11/07/23 17:36 Dose: Infused Documented By: Admin: 11/07/23 16:36 Dose: 100 mls/hr Documented By: Infusion: 11/07/23 16:35 Dose: Infused Documented By: Admin: 11/07/23 15:35 Dose: 100 mls/hr Documented By: Infusion: 11/07/23 15:34 Dose: Infused Documented By: Admin: 11/07/23 14:34 Dose: 100 mls/hr Documented By: BARRY Naloxone HCl (Naloxone 1 Mg/Ml Syringe) 2 mg IV NOW ONE Stop: 11/07/23 00:48 Last Admin: 11/07/23 01:10 Dose: Not Given Documented By: PILLO Pantoprazole Sodium (Pantoprazole 40 Mg Vial) 80 mg IV NOW ONE Stop: 11/07/23 05:18 Last Admin: 11/07/23 05:21 Dose: 80 mg Documented By: Vital Signs Vital signs: Vital Signs - 8 hr 11/07/23 00:36 11/07/23 01:21 11/07/23 01:32 Pulse Rate 94 H Respiratory Rate 14 Blood Pressure 129/78 97/57 L Pulse Oximetry 97 99 Oxygen Delivery Method Nasal Cannula Mechanical Ventilation Oxygen Flow Rate 3 Fraction of Inspired Oxygen 11/07/23 01:32 11/07/23 01:34 11/07/23 01:34 Pulse Rate 87 86 Respiratory Rate 20 20 Blood Pressure 97/53 L Pulse Oximetry 100 100 Oxygen Delivery Method Mechanical Ventilation Mechanical Ventilation Oxygen Flow Rate Fraction of Inspired Oxygen 11/07/23 01:36 11/07/23 01:36 11/07/23 01:38 Pulse Rate 82 Respiratory Rate 20 Blood Pressure 96/55 L 104/57 L Pulse Oximetry 100 Oxygen Delivery Method Oxygen Flow Rate Fraction of Inspired Oxygen 11/07/23 01:38 11/07/23 01:40 11/07/23 01:40 Pulse Rate 83 86 Respiratory Rate 20 20 Blood Pressure 103/59 L Pulse Oximetry 100 100 Oxygen Delivery Method Oxygen Flow Rate Fraction of Inspired Oxygen 11/07/23 01:42 11/07/23 01:42 11/07/23 01:44 Pulse Rate 83 85 Respiratory Rate 26 H 20 Blood Pressure 103/59 L Pulse Oximetry 100 100 Oxygen Delivery Method Mechanical Ventilation Oxygen Flow Rate Fraction of Inspired Oxygen 11/07/23 01:44 11/07/23 01:46 11/07/23 01:46 Pulse Rate 82 Respiratory Rate 20 Blood Pressure 105/57 L 102/55 L Pulse Oximetry 100 Oxygen Delivery Method Mechanical Ventilation Oxygen Flow Rate Fraction of Inspired Oxygen 11/07/23 01:48 11/07/23 01:48 11/07/23 01:50 Pulse Rate 84 Respiratory Rate 32 H Blood Pressure 102/63 107/65 Pulse Oximetry 99 Oxygen Delivery Method Oxygen Flow Rate Fraction of Inspired Oxygen 11/07/23 01:50 11/07/23 01:52 11/07/23 01:52 Pulse Rate 97 H 89 Respiratory Rate 20 25 H Blood Pressure 105/61 Pulse Oximetry 99 99 Oxygen Delivery Method Oxygen Flow Rate Fraction of Inspired Oxygen 11/07/23 01:54 11/07/23 01:54 11/07/23 01:56 Pulse Rate 93 H 87 Respiratory Rate 22 20 Blood Pressure 108/70 Pulse Oximetry 99 99 Oxygen Delivery Method Oxygen Flow Rate Fraction of Inspired Oxygen 11/07/23 01:56 11/07/23 01:58 11/07/23 01:58 Pulse Rate 93 H Respiratory Rate 25 H Blood Pressure 103/66 109/61 Pulse Oximetry 99 Oxygen Delivery Method Oxygen Flow Rate Fraction of Inspired Oxygen 11/07/23 02:00 11/07/23 02:00 11/07/23 02:02 Pulse Rate 94 H 90 Respiratory Rate 20 20 Blood Pressure 103/55 L Pulse Oximetry 99 100 Oxygen Delivery Method Oxygen Flow Rate Fraction of Inspired Oxygen 11/07/23 02:02 11/07/23 02:04 11/07/23 02:04 Pulse Rate 88 Respiratory Rate 20 Blood Pressure 96/53 L 94/53 L Pulse Oximetry 100 Oxygen Delivery Method Oxygen Flow Rate Fraction of Inspired Oxygen 11/07/23 02:06 11/07/23 02:06 11/07/23 02:08 Pulse Rate 90 Respiratory Rate 20 Blood Pressure 92/53 L 94/52 L Pulse Oximetry 100 Oxygen Delivery Method Oxygen Flow Rate Fraction of Inspired Oxygen 11/07/23 02:08 11/07/23 02:10 11/07/23 02:10 Pulse Rate 90 87 Respiratory Rate 20 20 Blood Pressure 95/52 L Pulse Oximetry 100 100 Oxygen Delivery Method Oxygen Flow Rate Fraction of Inspired Oxygen 11/07/23 02:12 11/07/23 02:12 11/07/23 02:14 Pulse Rate 87 89 Respiratory Rate 20 20 Blood Pressure 98/54 L Pulse Oximetry 100 99 Oxygen Delivery Method Oxygen Flow Rate Fraction of Inspired Oxygen 11/07/23 02:14 11/07/23 02:16 11/07/23 02:16 Pulse Rate 88 Respiratory Rate 20 Blood Pressure 96/57 L 92/55 L Pulse Oximetry 100 Oxygen Delivery Method Oxygen Flow Rate Fraction of Inspired Oxygen 11/07/23 02:18 11/07/23 02:18 11/07/23 02:20 Pulse Rate 87 88 Respiratory Rate 20 20 Blood Pressure 96/54 L Pulse Oximetry 100 100 Oxygen Delivery Method Oxygen Flow Rate Fraction of Inspired Oxygen 11/07/23 02:20 11/07/23 02:22 11/07/23 02:22 Pulse Rate 87 Respiratory Rate 20 Blood Pressure 95/58 L 96/57 L Pulse Oximetry 100 Oxygen Delivery Method Oxygen Flow Rate Fraction of Inspired Oxygen 11/07/23 02:24 11/07/23 02:24 11/07/23 02:26 Pulse Rate 87 87 Respiratory Rate 20 20 Blood Pressure 95/56 L Pulse Oximetry 100 100 Oxygen Delivery Method Oxygen Flow Rate Fraction of Inspired Oxygen 11/07/23 02:26 11/07/23 02:28 11/07/23 02:28 Pulse Rate 88 Respiratory Rate 20 Blood Pressure 97/56 L 99/58 L Pulse Oximetry 100 Oxygen Delivery Method Oxygen Flow Rate Fraction of Inspired Oxygen 11/07/23 02:29 11/07/23 02:30 11/07/23 02:30 Pulse Rate 86 Respiratory Rate 20 Blood Pressure 97/56 L Pulse Oximetry 100 Oxygen Delivery Method Oxygen Flow Rate Fraction of Inspired Oxygen 40 11/07/23 02:32 11/07/23 02:32 11/07/23 02:34 Pulse Rate 85 84 Respiratory Rate 20 20 Blood Pressure 96/55 L Pulse Oximetry 100 100 Oxygen Delivery Method Oxygen Flow Rate Fraction of Inspired Oxygen 11/07/23 02:34 11/07/23 02:36 11/07/23 02:36 Pulse Rate 82 Respiratory Rate 20 Blood Pressure 94/55 L 93/54 L Pulse Oximetry 100 Oxygen Delivery Method Oxygen Flow Rate Fraction of Inspired Oxygen 11/07/23 02:38 11/07/23 02:38 11/07/23 02:40 Pulse Rate 81 Respiratory Rate 20 Blood Pressure 95/54 L 95/53 L Pulse Oximetry 100 Oxygen Delivery Method Oxygen Flow Rate Fraction of Inspired Oxygen 11/07/23 02:40 11/07/23 02:42 11/07/23 02:42 Pulse Rate 80 79 Respiratory Rate 20 20 Blood Pressure 95/55 L Pulse Oximetry 100 100 Oxygen Delivery Method Oxygen Flow Rate Fraction of Inspired Oxygen 11/07/23 02:44 11/07/23 02:44 11/07/23 02:46 Pulse Rate 79 77 Respiratory Rate 20 20 Blood Pressure 96/54 L Pulse Oximetry 100 100 Oxygen Delivery Method Oxygen Flow Rate Fraction of Inspired Oxygen 11/07/23 02:46 11/07/23 02:48 11/07/23 02:48 Pulse Rate 83 Respiratory Rate 20 Blood Pressure 96/56 L 103/67 Pulse Oximetry 100 Oxygen Delivery Method Oxygen Flow Rate Fraction of Inspired Oxygen 11/07/23 02:50 11/07/23 02:50 11/07/23 02:52 Pulse Rate 90 87 Respiratory Rate 18 20 Blood Pressure 101/66 Pulse Oximetry 100 100 Oxygen Delivery Method Oxygen Flow Rate Fraction of Inspired Oxygen 11/07/23 02:52 11/07/23 02:54 11/07/23 02:54 Pulse Rate 86 Respiratory Rate 20 Blood Pressure 101/62 99/58 L Pulse Oximetry 100 Oxygen Delivery Method Oxygen Flow Rate Fraction of Inspired Oxygen 11/07/23 02:56 11/07/23 02:56 11/07/23 02:58 Pulse Rate 87 88 Respiratory Rate 20 20 Blood Pressure 97/55 L Pulse Oximetry 100 100 Oxygen Delivery Method Oxygen Flow Rate Fraction of Inspired Oxygen 11/07/23 02:58 11/07/23 03:00 11/07/23 03:00 Pulse Rate 85 Respiratory Rate 20 Blood Pressure 97/55 L 98/55 L Pulse Oximetry 100 Oxygen Delivery Method Oxygen Flow Rate Fraction of Inspired Oxygen 11/07/23 03:02 11/07/23 03:02 11/07/23 03:04 Pulse Rate 87 85 Respiratory Rate 20 20 Blood Pressure 101/60 Pulse Oximetry 100 100 Oxygen Delivery Method Oxygen Flow Rate Fraction of Inspired Oxygen 11/07/23 03:04 11/07/23 03:06 11/07/23 03:06 Pulse Rate 85 Respiratory Rate 20 Blood Pressure 98/57 L 104/57 L Pulse Oximetry 100 Oxygen Delivery Method Oxygen Flow Rate Fraction of Inspired Oxygen 11/07/23 03:08 11/07/23 03:08 11/07/23 03:10 Pulse Rate 86 Respiratory Rate 20 Blood Pressure 102/57 L 104/59 L Pulse Oximetry 100 Oxygen Delivery Method Oxygen Flow Rate Fraction of Inspired Oxygen 11/07/23 03:10 11/07/23 03:12 11/07/23 03:12 Pulse Rate 86 84 Respiratory Rate 20 20 Blood Pressure 104/59 L Pulse Oximetry 100 100 Oxygen Delivery Method Oxygen Flow Rate Fraction of Inspired Oxygen 11/07/23 03:14 11/07/23 03:14 11/07/23 03:16 Pulse Rate 84 85 Respiratory Rate 20 24 Blood Pressure 103/58 L Pulse Oximetry 100 100 Oxygen Delivery Method Oxygen Flow Rate Fraction of Inspired Oxygen 11/07/23 03:16 11/07/23 03:18 11/07/23 03:18 Pulse Rate 87 Respiratory Rate 20 Blood Pressure 99/59 L 100/59 L Pulse Oximetry 100 Oxygen Delivery Method Oxygen Flow Rate Fraction of Inspired Oxygen 11/07/23 03:20 11/07/23 03:20 11/07/23 03:22 Pulse Rate 86 Respiratory Rate 20 Blood Pressure 98/57 L 95/57 L Pulse Oximetry 100 Oxygen Delivery Method Oxygen Flow Rate Fraction of Inspired Oxygen 11/07/23 03:22 11/07/23 03:46 11/07/23 03:46 Pulse Rate 90 86 Respiratory Rate 20 20 Blood Pressure 99/55 L Pulse Oximetry 100 100 Oxygen Delivery Method Oxygen Flow Rate Fraction of Inspired Oxygen 11/07/23 03:48 11/07/23 03:48 11/07/23 03:50 Pulse Rate 87 87 Respiratory Rate 20 20 Blood Pressure 102/56 L Pulse Oximetry 100 100 Oxygen Delivery Method Oxygen Flow Rate Fraction of Inspired Oxygen 11/07/23 03:50 11/07/23 03:52 11/07/23 03:52 Pulse Rate 87 Respiratory Rate 21 Blood Pressure 100/58 L 102/60 Pulse Oximetry 100 Oxygen Delivery Method Oxygen Flow Rate Fraction of Inspired Oxygen 11/07/23 03:54 11/07/23 03:54 11/07/23 03:56 Pulse Rate 90 84 Respiratory Rate 19 20 Blood Pressure 108/57 L Pulse Oximetry 100 100 Oxygen Delivery Method Oxygen Flow Rate Fraction of Inspired Oxygen 11/07/23 03:56 11/07/23 03:58 11/07/23 03:58 Pulse Rate 85 Respiratory Rate 20 Blood Pressure 95/54 L 95/51 L Pulse Oximetry 100 Oxygen Delivery Method Oxygen Flow Rate Fraction of Inspired Oxygen 11/07/23 04:00 11/07/23 04:00 11/07/23 04:02 Pulse Rate 86 86 Respiratory Rate 20 20 Blood Pressure 99/58 L Pulse Oximetry 100 100 Oxygen Delivery Method Oxygen Flow Rate Fraction of Inspired Oxygen 11/07/23 04:02 11/07/23 04:04 11/07/23 04:04 Pulse Rate 87 Respiratory Rate 20 Blood Pressure 100/55 L 103/57 L Pulse Oximetry 100 Oxygen Delivery Method Oxygen Flow Rate Fraction of Inspired Oxygen 11/07/23 04:06 11/07/23 04:06 11/07/23 04:08 Pulse Rate 86 86 Respiratory Rate 20 20 Blood Pressure 104/58 L Pulse Oximetry 100 100 Oxygen Delivery Method Oxygen Flow Rate Fraction of Inspired Oxygen 11/07/23 04:08 11/07/23 04:10 11/07/23 04:10 Pulse Rate 87 Respiratory Rate 20 Blood Pressure 106/59 L 106/63 Pulse Oximetry 100 Oxygen Delivery Method Oxygen Flow Rate Fraction of Inspired Oxygen 11/07/23 04:12 11/07/23 04:12 11/07/23 04:14 Pulse Rate 87 86 Respiratory Rate 20 20 Blood Pressure 108/64 Pulse Oximetry 100 100 Oxygen Delivery Method Oxygen Flow Rate Fraction of Inspired Oxygen 11/07/23 04:14 07/19/24 04:16 11/07/23 04:16 Pulse Rate 86 Respiratory Rate 20 Blood Pressure 104/62 103/59 L Pulse Oximetry 100 Oxygen Delivery Method Oxygen Flow Rate Fraction of Inspired Oxygen 11/07/23 04:18 11/07/23 04:18 11/07/23 04:20 Pulse Rate 87 89 Respiratory Rate 20 20 Blood Pressure 101/58 L Pulse Oximetry 100 100 Oxygen Delivery Method Oxygen Flow Rate Fraction of Inspired Oxygen 11/07/23 04:20 11/07/23 04:22 11/07/23 04:22 Pulse Rate 89 Respiratory Rate 20 Blood Pressure 101/59 L 102/59 L Pulse Oximetry 100 Oxygen Delivery Method Oxygen Flow Rate Fraction of Inspired Oxygen 11/07/23 04:24 11/07/23 04:24 11/07/23 04:26 Pulse Rate 89 87 Respiratory Rate 20 20 Blood Pressure 103/58 L Pulse Oximetry 100 100 Oxygen Delivery Method Oxygen Flow Rate Fraction of Inspired Oxygen 11/07/23 04:26 11/07/23 04:28 11/07/23 04:28 Pulse Rate 86 Respiratory Rate 20 Blood Pressure 104/61 105/59 L Pulse Oximetry 100 Oxygen Delivery Method Oxygen Flow Rate Fraction of Inspired Oxygen 11/07/23 04:30 11/07/23 04:30 11/07/23 04:32 Pulse Rate 88 90 Respiratory Rate 20 20 Blood Pressure 106/61 Pulse Oximetry 100 100 Oxygen Delivery Method Oxygen Flow Rate Fraction of Inspired Oxygen 11/07/23 04:32 11/07/23 04:34 11/07/23 04:34 Pulse Rate 84 Respiratory Rate 20 Blood Pressure 108/61 98/53 L Pulse Oximetry 100 Oxygen Delivery Method Oxygen Flow Rate Fraction of Inspired Oxygen 11/07/23 04:56 11/07/23 04:56 11/07/23 04:58 Pulse Rate 83 81 Respiratory Rate 20 20 Blood Pressure 107/61 Pulse Oximetry 100 100 Oxygen Delivery Method Oxygen Flow Rate Fraction of Inspired Oxygen 11/07/23 04:58 11/07/23 05:00 11/07/23 05:00 Pulse Rate 80 Respiratory Rate 20 Blood Pressure 100/56 L 96/54 L Pulse Oximetry 100 Oxygen Delivery Method Oxygen Flow Rate Fraction of Inspired Oxygen 11/07/23 05:02 11/07/23 05:02 11/07/23 05:04 Pulse Rate 80 80 Respiratory Rate 20 20 Blood Pressure 92/51 L Pulse Oximetry 100 100 Oxygen Delivery Method Oxygen Flow Rate Fraction of Inspired Oxygen 11/07/23 05:04 11/07/23 05:06 11/07/23 05:06 Pulse Rate 80 Respiratory Rate 20 Blood Pressure 92/50 L 95/52 L Pulse Oximetry 100 Oxygen Delivery Method Oxygen Flow Rate Fraction of Inspired Oxygen 11/07/23 05:08 11/07/23 05:08 11/07/23 05:10 Pulse Rate 80 80 Respiratory Rate 20 20 Blood Pressure 93/51 L Pulse Oximetry 99 99 Oxygen Delivery Method Oxygen Flow Rate Fraction of Inspired Oxygen 11/07/23 05:10 11/07/23 05:12 11/07/23 05:12 Pulse Rate 83 Respiratory Rate 20 Blood Pressure 95/53 L 97/54 L Pulse Oximetry 100 Oxygen Delivery Method Oxygen Flow Rate Fraction of Inspired Oxygen 11/07/23 05:14 11/07/23 05:14 11/07/23 05:16 Pulse Rate 87 92 H Respiratory Rate 20 19 Blood Pressure 108/67 Pulse Oximetry 100 100 Oxygen Delivery Method Oxygen Flow Rate Fraction of Inspired Oxygen 11/07/23 05:16 11/07/23 05:18 11/07/23 05:18 Pulse Rate 91 H Respiratory Rate 20 Blood Pressure 105/68 103/61 Pulse Oximetry 100 Oxygen Delivery Method Oxygen Flow Rate Fraction of Inspired Oxygen 11/07/23 05:20 11/07/23 05:20 11/07/23 05:22 Pulse Rate 87 85 Respiratory Rate 20 20 Blood Pressure 94/52 L Pulse Oximetry 100 99 Oxygen Delivery Method Oxygen Flow Rate Fraction of Inspired Oxygen 11/07/23 05:22 11/07/23 05:23 11/07/23 05:23 Pulse Rate 85 Respiratory Rate 20 Blood Pressure 90/55 L 90/55 L Pulse Oximetry 99 Oxygen Delivery Method Oxygen Flow Rate Fraction of Inspired Oxygen 11/07/23 05:24 11/07/23 05:24 11/07/23 05:26 Pulse Rate 84 83 Respiratory Rate 20 20 Blood Pressure 89/54 L Pulse Oximetry 99 99 Oxygen Delivery Method Oxygen Flow Rate Fraction of Inspired Oxygen 11/07/23 05:26 11/07/23 05:28 11/07/23 05:28 Pulse Rate 82 Respiratory Rate 20 Blood Pressure 89/50 L 91/52 L Pulse Oximetry 99 Oxygen Delivery Method Oxygen Flow Rate Fraction of Inspired Oxygen 11/07/23 05:30 11/07/23 05:30 11/07/23 05:32 Pulse Rate 84 80 Respiratory Rate 20 20 Blood Pressure 89/51 L Pulse Oximetry 99 100 Oxygen Delivery Method Oxygen Flow Rate Fraction of Inspired Oxygen 11/07/23 05:32 11/07/23 05:34 11/07/23 05:34 Pulse Rate 79 Respiratory Rate 20 Blood Pressure 93/54 L 89/54 L Pulse Oximetry 100 Oxygen Delivery Method Oxygen Flow Rate Fraction of Inspired Oxygen 11/07/23 05:36 11/07/23 05:36 11/07/23 05:38 Pulse Rate 79 Respiratory Rate 20 Blood Pressure 87/52 L 87/52 L Pulse Oximetry 100 Oxygen Delivery Method Oxygen Flow Rate Fraction of Inspired Oxygen 11/07/23 05:38 11/07/23 05:40 11/07/23 05:40 Pulse Rate 78 78 Respiratory Rate 20 20 Blood Pressure 86/51 L Pulse Oximetry 100 99 Oxygen Delivery Method Oxygen Flow Rate Fraction of Inspired Oxygen 11/07/23 05:42 11/07/23 05:42 11/07/23 05:45 Pulse Rate 78 89 Respiratory Rate 20 20 Blood Pressure 89/51 L Pulse Oximetry 100 100 Oxygen Delivery Method Oxygen Flow Rate Fraction of Inspired Oxygen 11/07/23 05:45 11/07/23 05:46 11/07/23 05:46 Pulse Rate 88 Respiratory Rate 20 Blood Pressure 99/61 100/58 L Pulse Oximetry 100 Oxygen Delivery Method Oxygen Flow Rate Fraction of Inspired Oxygen 11/07/23 05:48 11/07/23 05:48 11/07/23 05:50 Pulse Rate 85 84 Respiratory Rate 20 20 Blood Pressure 98/57 L Pulse Oximetry 100 100 Oxygen Delivery Method Oxygen Flow Rate Fraction of Inspired Oxygen 11/07/23 05:50 11/07/23 05:52 11/07/23 05:52 Pulse Rate 84 Respiratory Rate 20 Blood Pressure 97/56 L 95/52 L Pulse Oximetry 100 Oxygen Delivery Method Oxygen Flow Rate Fraction of Inspired Oxygen 11/07/23 06:28 11/07/23 06:28 11/07/23 06:30 Pulse Rate 93 H 88 Respiratory Rate 20 20 Blood Pressure 105/66 Pulse Oximetry 100 100 Oxygen Delivery Method Oxygen Flow Rate Fraction of Inspired Oxygen 11/07/23 06:30 11/07/23 06:32 11/07/23 06:32 Pulse Rate 85 Respiratory Rate 20 Blood Pressure 106/64 100/60 Pulse Oximetry 100 Oxygen Delivery Method Oxygen Flow Rate Fraction of Inspired Oxygen 11/07/23 06:34 11/07/23 06:34 11/07/23 06:36 Pulse Rate 84 Respiratory Rate 20 Blood Pressure 99/60 101/58 L Pulse Oximetry 100 Oxygen Delivery Method Oxygen Flow Rate Fraction of Inspired Oxygen 11/07/23 06:36 11/07/23 06:38 11/07/23 06:38 Pulse Rate 83 82 Respiratory Rate 20 20 Blood Pressure 101/58 L Pulse Oximetry 100 100 Oxygen Delivery Method Oxygen Flow Rate Fraction of Inspired Oxygen 11/07/23 06:40 11/07/23 06:40 11/07/23 06:42 Pulse Rate 81 84 Respiratory Rate 20 23 Blood Pressure 101/57 L Pulse Oximetry 100 100 Oxygen Delivery Method Oxygen Flow Rate Fraction of Inspired Oxygen 11/07/23 06:42 11/07/23 06:44 11/07/23 06:44 Pulse Rate 90 Respiratory Rate 20 Blood Pressure 88/57 L 101/55 L Pulse Oximetry 100 Oxygen Delivery Method Oxygen Flow Rate Fraction of Inspired Oxygen 11/07/23 06:46 11/07/23 06:46 11/07/23 06:48 Pulse Rate 85 89 Respiratory Rate 21 Blood Pressure 94/54 L Pulse Oximetry 100 Oxygen Delivery Method Oxygen Flow Rate Fraction of Inspired Oxygen 11/07/23 06:48 11/07/23 06:50 11/07/23 06:50 Pulse Rate 88 Respiratory Rate 20 Blood Pressure 91/57 L 103/63 Pulse Oximetry 100 Oxygen Delivery Method Oxygen Flow Rate Fraction of Inspired Oxygen 11/07/23 06:52 11/07/23 06:52 11/07/23 06:54 Pulse Rate 83 85 Respiratory Rate 20 20 Blood Pressure 103/59 L Pulse Oximetry 100 100 Oxygen Delivery Method Oxygen Flow Rate Fraction of Inspired Oxygen 11/07/23 06:54 11/07/23 06:56 11/07/23 06:56 Pulse Rate 83 Respiratory Rate 20 Blood Pressure 100/57 L 94/54 L Pulse Oximetry 100 Oxygen Delivery Method Oxygen Flow Rate Fraction of Inspired Oxygen 11/07/23 06:58 11/07/23 06:58 11/07/23 07:00 Pulse Rate 82 Respiratory Rate 20 Blood Pressure 94/54 L 91/52 L Pulse Oximetry 100 Oxygen Delivery Method Oxygen Flow Rate Fraction of Inspired Oxygen 11/07/23 07:00 11/07/23 07:02 11/07/23 07:02 Pulse Rate 81 80 Respiratory Rate 20 20 Blood Pressure 89/50 L Pulse Oximetry 100 100 Oxygen Delivery Method Oxygen Flow Rate Fraction of Inspired Oxygen 11/07/23 07:04 11/07/23 07:04 11/07/23 07:06 Pulse Rate 80 79 Respiratory Rate 20 20 Blood Pressure 92/52 L Pulse Oximetry 100 100 Oxygen Delivery Method Oxygen Flow Rate Fraction of Inspired Oxygen 11/07/23 07:06 11/07/23 07:08 11/07/23 07:08 Pulse Rate 78 Respiratory Rate 20 Blood Pressure 89/50 L 93/50 L Pulse Oximetry 100 Oxygen Delivery Method Oxygen Flow Rate Fraction of Inspired Oxygen 11/07/23 07:10 11/07/23 07:10 11/07/23 07:12 Pulse Rate 86 91 H Respiratory Rate 20 Blood Pressure 98/58 L Pulse Oximetry 100 100 Oxygen Delivery Method Oxygen Flow Rate Fraction of Inspired Oxygen 11/07/23 07:12 11/07/23 07:15 11/07/23 07:15 Pulse Rate 85 Respiratory Rate 20 Blood Pressure 103/64 105/65 Pulse Oximetry 100 Oxygen Delivery Method Oxygen Flow Rate Fraction of Inspired Oxygen 11/07/23 07:20 11/07/23 07:20 Pulse Rate 82 Respiratory Rate 20 Blood Pressure 99/60 Pulse Oximetry 100 Oxygen Delivery Method Oxygen Flow Rate Fraction of Inspired Oxygen MDM - Altered Mental Status <Trudi Parekh MD - Last Filed: 11/07/23 19:23> Differential Diagnosis Differential diagnosis: Likely alcoholic intoxication, altered mental status and delirium Lab Data 11/07/23 00:15 11/07/23 00:15 Labs: Lab Results 11/07/23 11/07/23 11/07/23 Range/Units 00:15 00:45 01:36 WBC 7.9 (4.5-11.0) X10^3/uL RBC 4.09 (4.0-5.2) X10^6/uL Hgb 12.7 (12.0-16.0) g/dL Hct 37.1 (36-46) % MCV 90.8 (80-100) fL MCH 31.0 (26-34) PG MCHC 34.2 (30-36) % RDW 13.7 (11.6-14.8) % Plt Count 321 (150-400) X10^3/uL Neut % (Auto) 46.5 L (50-75) % Lymph % (Auto) 41.2 H (25-40) % Christian % (Auto) 11.9 (3-14) % Eos % (Auto) 0.1 L (2-4) % Baso % (Auto) 0.3 (0-2) % Neut # (Auto) 3700 (3844-7327) /uL Lymph # (Auto) 3300 (2807-6584) /uL Christian # (Auto) 900 (0-900) /uL Eos # (Auto) 0 (0-450) /uL Baso # (Auto) 0 (0-100) /uL ABG Sample Site Right radial ABG pH 7.34 L (7.35-7.45) ABG pCO2 37.5 (35-45) mmHg ABG pO2 173 H (80-100) mmHg ABG HCO3 20 L (23-27) mmol/L ABG Total CO2 20 L (23-27) mmol/L ABG O2 Saturation 100 (95-100) % ABG Base Excess -4.9 L (-2-3) mmol/L Respiration Rate 20 O2 Delivery Device Vent Mode of Support Assist cont ventilat FiO2 40 Tidal Volume 400 PEEP or CPAP 5 Sodium 145 (137-145) mmol/L Potassium 3.2 L (3.4-5.1) mmol/L Chloride 111 H (98-107) mmol/L Carbon Dioxide 21 L (22-32) mmol/L BUN 3 L (7-17) mg/dL Creatinine 0.83 (0.52-1.04) mg/dL Estimated GFR > 60 (>60) mL/min BUN/Creatinine Ratio 3.6 L (6-22) Glucose 99 (70-100) mg/dL Lactate 4.6 H* (0.7-2.1) mmol/L Calcium 8.4 (8.4-10.2) mg/dL Total Bilirubin 0.5 (0.2-1.3) mg/dL AST 25 (14-36) IU/L ALT 20 (<35) IU/L Alkaline Phosphatase 64 (38-126) U/L Total Creatine Kinase 79 (30-135) U/L Total Protein 7.6 (6.3-8.2) g/dL Albumin 4.5 (3.5-5.0) g/dL Globulin 3.1 (1.7-4.1) g/dL Albumin/Globulin Ratio 1.5 (1.0-2.8) Salicylates < 1.0 (<20) mg/dL U Opiates 300ng/mL cut Negative (Negative) Ur Oxycodone Screen Negative (Negative) Urine Methadone Screen Negative (Negative) Acetaminophen < 10 (10-30) ug/mL Ur Barbiturates Screen Negative (Negative) U Tricyclic Antidepress Negative (Negative) Ur Phencyclidine Scrn Negative (Negative) Ur Amphetamines Screen Positive H (Negative) U Methamphetamines Scrn Negative (Negative) Ur MDMA Scrn (Ecstasy) Negative (Negative) U Benzodiazepines Scrn Negative (Negative) Urine Cocaine Screen Negative (Negative) U Marijuana (THC) Screen Negative (Negative) Urine pH Normal (Normal) Urine Specific Webster Normal (Normal) Ethyl Alcohol 275 H ( - 10) mg/dL Ur Creatinine Normal (Normal) 11/07/23 Range/Units 03:35 WBC (4.5-11.0) X10^3/uL RBC (4.0-5.2) X10^6/uL Hgb (12.0-16.0) g/dL Hct (36-46) % MCV (80-100) fL MCH (26-34) PG MCHC (30-36) % RDW (11.6-14.8) % Plt Count (150-400) X10^3/uL Neut % (Auto) (50-75) % Lymph % (Auto) (25-40) % Christian % (Auto) (3-14) % Eos % (Auto) (2-4) % Baso % (Auto) (0-2) % Neut # (Auto) (6183-7833) /uL Lymph # (Auto) (0450-5377) /uL Christian # (Auto) (0-900) /uL Eos # (Auto) (0-450) /uL Baso # (Auto) (0-100) /uL ABG Sample Site ABG pH (7.35-7.45) ABG pCO2 (35-45) mmHg ABG pO2 (80-100) mmHg ABG HCO3 (23-27) mmol/L ABG Total CO2 (23-27) mmol/L ABG O2 Saturation (95-100) % ABG Base Excess (-2-3) mmol/L Respiration Rate O2 Delivery Device Mode of Support FiO2 Tidal Volume PEEP or CPAP Sodium (137-145) mmol/L Potassium (3.4-5.1) mmol/L Chloride (98-107) mmol/L Carbon Dioxide (22-32) mmol/L BUN (7-17) mg/dL Creatinine (0.52-1.04) mg/dL Estimated GFR (>60) mL/min BUN/Creatinine Ratio (6-22) Glucose (70-100) mg/dL Lactate 2.3 H (0.7-2.1) mmol/L Calcium (8.4-10.2) mg/dL Total Bilirubin (0.2-1.3) mg/dL AST (14-36) IU/L ALT (<35) IU/L Alkaline Phosphatase (38-126) U/L Total Creatine Kinase (30-135) U/L Total Protein (6.3-8.2) g/dL Albumin (3.5-5.0) g/dL Globulin (1.7-4.1) g/dL Albumin/Globulin Ratio (1.0-2.8) Salicylates (<20) mg/dL U Opiates 300ng/mL cut (Negative) Ur Oxycodone Screen (Negative) Urine Methadone Screen (Negative) Acetaminophen (10-30) ug/mL Ur Barbiturates Screen (Negative) U Tricyclic Antidepress (Negative) Ur Phencyclidine Scrn (Negative) Ur Amphetamines Screen (Negative) U Methamphetamines Scrn (Negative) Ur MDMA Scrn (Ecstasy) (Negative) U Benzodiazepines Scrn (Negative) Urine Cocaine Screen (Negative) U Marijuana (THC) Screen (Negative) Urine pH (Normal) Urine Specific Webster (Normal) Ethyl Alcohol ( - 10) mg/dL Ur Creatinine (Normal) Point of Care Testing Test Results Negative Urine Dip Bedside Urine Glucose Negative Bedside Urine Bilirubin - Negative Bedside Urine Ketone +/- 5 Urine Specific Webster 1.025 Bedside Urine Occult Blood - Negative Bedside Urine pH 5.5 Bedside Urine Protein - Negative Bedside Urine Urobilinogen - Negative Bedside Urine Nitrite - Negative Bedside Urine Leukocytes - Negative Esterase Imaging Data Chest x-ray: Radiologist's Impression: PROCEDURE: XR CHEST 1V INDICATIONS: OD/AMS TECHNIQUE: One view of the chest was acquired. COMPARISON: None. FINDINGS: Surgical changes and devices: Nasogastric tube moved is present with distal tip projecting below the left hemidiaphragm. Endotracheal tube is present distal tip approximately 1.2 cm superior to the flores. Lungs and pleura: Lungs are clear. No pleural effusions or pneumothorax. Mediastinum: Mediastinal contours appear normal. Heart size is normal. Bones and chest wall: No suspicious bony lesions. Overlying soft tissues appear unremarkable. IMPRESSION: Support lines in appropriate position as above. Dictated by: Beverly Sanchez M.D. on 11/07/2023 at 1:23 Approved by: Beverly Sanchez M.D. on 11/07/2023 at 1:24 CT scan - head: Radiologist's Impression: PROCEDURE: CT HEAD/BRAIN WO CON INDICATIONS: OD/AMS TECHNIQUE: Noncontrast 4.5 mm thick angled axial sections acquired from the foramen magnum to the vertex, with coronal and sagittal reformats. For radiation dose reduction, the following was used: automated exposure control, adjustment of mA and/or kV according to patient size. COMPARISON: None. FINDINGS: Image quality: Diagnostic. CSF spaces: Basal cisterns are patent. No extra-axial fluid collections. Ventricles are normal in size and shape. Brain: No midline shift. No intracranial masses or hemorrhage. Casey-white matter interface is normal. Skull and face: Calvarium and visualized facial bones are intact, without suspicious lesions. Sinuses: Visualized sinuses and mastoids are clear. IMPRESSION: No acute intracranial pathology. Dictated by: Beverly Sanchez M.D. on 11/07/2023 at 1:35 Approved by: Beverly Sanchez M.D. on 11/07/2023 at 1:36 [facility] Narrative Medical decision making narrative: Patient found outside agitated and altered, not following commands. Patient arrived obtunded with EMS staff. She has been given ketamine prior to arrival. Patient was breathing spontaneously, but continued to desaturate intermittently. Saturations improved with suction, however patient did not have a gag reflex when Yankauer introduced to oropharynx. No improvement with Narcan. Patient continued to have irregular respirations and intermittent periods of desaturation and so decision made to intubate patient for airway protection. Please see procedure note for details. Police were able to identify patient and I spoke with her mother on her cell phone. Mother states that patient has history of alcohol abuse and bipolar disorder. Unknown if there has been any concomitant use of illicit drugs. Added thiamine and folic acid due to history of alcohol abuse. Laboratory work is reviewed, WBC count 7.9, hemoglobin 12.7, platelets 321, sodium 145, potassium 3.2, creatinine 0.83, lactic acid 4.6, repeat 2.3, normal liver enzymes, T bili 0.5. Alcohol level 275. Patient remains intubated, minimally sedated on the ventilator. Patient has purposeful movements but is still not following commands. 0515 -since patient has had no significant improvement in mental status and does not seem to be metabolizing to normal state of consciousness call was initially made to admit patient to hospital. Just after placing called for admission nursing staff informed me that bright red blood was coming from patient's OG tube. Confirmed presence of red blood in OG tube. It did seem that OG tube was to higher than normal mmHg suction. Ordered IV protonix and will monitor. If no improvement then we will attempt to transfer for GI consult. Blood in OG tube resolved spontaneously, only a small, less than 50 cc amount total, subsequent output brownish gastric contents. Patient continues to have purposeful movements but still not following commands. Plan to admit to ICU for further treatment. <Julio Chilel, - Last Filed: 11/07/23 07:29> Lab Data Labs: Lab Results 11/07/23 11/07/23 11/07/23 Range/Units 00:15 00:45 01:36 WBC 7.9 (4.5-11.0) X10^3/uL RBC 4.09 (4.0-5.2) X10^6/uL Hgb 12.7 (12.0-16.0) g/dL Hct 37.1 (36-46) % MCV 90.8 (80-100) fL MCH 31.0 (26-34) PG MCHC 34.2 (30-36) % RDW 13.7 (11.6-14.8) % Plt Count 321 (150-400) X10^3/uL Neut % (Auto) 46.5 L (50-75) % Lymph % (Auto) 41.2 H (25-40) % Christian % (Auto) 11.9 (3-14) % Eos % (Auto) 0.1 L (2-4) % Baso % (Auto) 0.3 (0-2) % Neut # (Auto) 3700 (9849-7418) /uL Lymph # (Auto) 3300 (7849-7860) /uL Christian # (Auto) 900 (0-900) /uL Eos # (Auto) 0 (0-450) /uL Baso # (Auto) 0 (0-100) /uL ABG Sample Site Right radial ABG pH 7.34 L (7.35-7.45) ABG pCO2 37.5 (35-45) mmHg ABG pO2 173 H (80-100) mmHg ABG HCO3 20 L (23-27) mmol/L ABG Total CO2 20 L (23-27) mmol/L ABG O2 Saturation 100 (95-100) % ABG Base Excess -4.9 L (-2-3) mmol/L Respiration Rate 20 O2 Delivery Device Vent Mode of Support Assist cont ventilat FiO2 40 Tidal Volume 400 PEEP or CPAP 5 Sodium 145 (137-145) mmol/L Potassium 3.2 L (3.4-5.1) mmol/L Chloride 111 H (98-107) mmol/L Carbon Dioxide 21 L (22-32) mmol/L BUN 3 L (7-17) mg/dL Creatinine 0.83 (0.52-1.04) mg/dL Estimated GFR > 60 (>60) mL/min BUN/Creatinine Ratio 3.6 L (6-22) Glucose 99 (70-100) mg/dL Lactate 4.6 H* (0.7-2.1) mmol/L Calcium 8.4 (8.4-10.2) mg/dL Total Bilirubin 0.5 (0.2-1.3) mg/dL AST 25 (14-36) IU/L ALT 20 (<35) IU/L Alkaline Phosphatase 64 (38-126) U/L Total Creatine Kinase 79 (30-135) U/L Total Protein 7.6 (6.3-8.2) g/dL Albumin 4.5 (3.5-5.0) g/dL Globulin 3.1 (1.7-4.1) g/dL Albumin/Globulin Ratio 1.5 (1.0-2.8) Salicylates < 1.0 (<20) mg/dL U Opiates 300ng/mL cut Negative (Negative) Ur Oxycodone Screen Negative (Negative) Urine Methadone Screen Negative (Negative) Acetaminophen < 10 (10-30) ug/mL Ur Barbiturates Screen Negative (Negative) U Tricyclic Antidepress Negative (Negative) Ur Phencyclidine Scrn Negative (Negative) Ur Amphetamines Screen Positive H (Negative) U Methamphetamines Scrn Negative (Negative) Ur MDMA Scrn (Ecstasy) Negative (Negative) U Benzodiazepines Scrn Negative (Negative) Urine Cocaine Screen Negative (Negative) U Marijuana (THC) Screen Negative (Negative) Urine pH Normal (Normal) Urine Specific Webster Normal (Normal) Ethyl Alcohol 275 H ( - 10) mg/dL Ur Creatinine Normal (Normal) 11/07/23 Range/Units 03:35 WBC (4.5-11.0) X10^3/uL RBC (4.0-5.2) X10^6/uL Hgb (12.0-16.0) g/dL Hct (36-46) % MCV (80-100) fL MCH (26-34) PG MCHC (30-36) % RDW (11.6-14.8) % Plt Count (150-400) X10^3/uL Neut % (Auto) (50-75) % Lymph % (Auto) (25-40) % Christian % (Auto) (3-14) % Eos % (Auto) (2-4) % Baso % (Auto) (0-2) % Neut # (Auto) (5170-3031) /uL Lymph # (Auto) (0560-0374) /uL Christian # (Auto) (0-900) /uL Eos # (Auto) (0-450) /uL Baso # (Auto) (0-100) /uL ABG Sample Site ABG pH (7.35-7.45) ABG pCO2 (35-45) mmHg ABG pO2 (80-100) mmHg ABG HCO3 (23-27) mmol/L ABG Total CO2 (23-27) mmol/L ABG O2 Saturation (95-100) % ABG Base Excess (-2-3) mmol/L Respiration Rate O2 Delivery Device Mode of Support FiO2 Tidal Volume PEEP or CPAP Sodium (137-145) mmol/L Potassium (3.4-5.1) mmol/L Chloride (98-107) mmol/L Carbon Dioxide (22-32) mmol/L BUN (7-17) mg/dL Creatinine (0.52-1.04) mg/dL Estimated GFR (>60) mL/min BUN/Creatinine Ratio (6-22) Glucose (70-100) mg/dL Lactate 2.3 H (0.7-2.1) mmol/L Calcium (8.4-10.2) mg/dL Total Bilirubin (0.2-1.3) mg/dL AST (14-36) IU/L ALT (<35) IU/L Alkaline Phosphatase (38-126) U/L Total Creatine Kinase (30-135) U/L Total Protein (6.3-8.2) g/dL Albumin (3.5-5.0) g/dL Globulin (1.7-4.1) g/dL Albumin/Globulin Ratio (1.0-2.8) Salicylates (<20) mg/dL U Opiates 300ng/mL cut (Negative) Ur Oxycodone Screen (Negative) Urine Methadone Screen (Negative) Acetaminophen (10-30) ug/mL Ur Barbiturates Screen (Negative) U Tricyclic Antidepress (Negative) Ur Phencyclidine Scrn (Negative) Ur Amphetamines Screen (Negative) U Methamphetamines Scrn (Negative) Ur MDMA Scrn (Ecstasy) (Negative) U Benzodiazepines Scrn (Negative) Urine Cocaine Screen (Negative) U Marijuana (THC) Screen (Negative) Urine pH (Normal) Urine Specific Webster (Normal) Ethyl Alcohol ( - 10) mg/dL Ur Creatinine (Normal) Point of Care Testing Test Results Negative Urine Dip Bedside Urine Glucose Negative Bedside Urine Bilirubin - Negative Bedside Urine Ketone +/- 5 Urine Specific Webster 1.025 Bedside Urine Occult Blood - Negative Bedside Urine pH 5.5 Bedside Urine Protein - Negative Bedside Urine Urobilinogen - Negative Bedside Urine Nitrite - Negative Bedside Urine Leukocytes - Negative Esterase MDM Narrative Medical decision making narrative: Patient found outside agitated and altered, not following commands. Patient arrived obtunded with EMS staff. She has been given ketamine prior to arrival. Patient was breathing spontaneously, but continued to desaturate intermittently. Saturations improved with suction, however patient did not have a gag reflex when Yankauer introduced to oropharynx. No improvement with Narcan. Patient continued to have irregular respirations and intermittent periods of desaturation and so decision made to intubate patient for airway protection. Please see procedure note for details. Police were able to identify patient and I spoke with her mother on her cell phone. Mother states that patient has history of alcohol abuse and bipolar disorder. Unknown if there has been any concomitant use of illicit drugs. Added thiamine and folic acid due to history of alcohol abuse. Laboratory work is reviewed, WBC count 7.9, hemoglobin 12.7, platelets 321, sodium 145, potassium 3.2, creatinine 0.83, lactic acid 4.6, repeat 2.3, normal liver enzymes, T bili 0.5. Alcohol level 275. Patient remains intubated, minimally sedated on the ventilator. Patient has purposeful movements but is still not following commands. 0515 -since patient has had no significant improvement in mental status and does not seem to be metabolizing to normal state of consciousness call was initially made to admit patient to hospital. Just after placing called for admission nursing staff informed me that bright red blood was coming from patient's OG tube. Confirmed presence of red blood in OG tube. It did seem that OG tube was to higher than normal mmHg suction. Ordered IV protonix and will monitor. If no improvement then we will attempt to transfer for GI consult. Blood in OG tube resolved spontaneously, only a small, less than 50 cc amount total, subsequent output brownish gastric contents. Patient continues to have purposeful movements but still not following commands. Plan to admit to ICU for further treatment. Dr Chilel: Received turned over. Discussed the case with Dr. Castro who is the hospitalist on-call who will admit for further evaluation and treatment. Critical Care Time <Trudi Parekh MD - Last Filed: 11/07/23 19:23> Critical Care Time Critical Care Time: Yes Total Critical Care Time: 59 Attestation: Acute metabolic encephalopathy from likely polysubstance abuse requiring constant airway monitoring, intubation, hemodynamic reassessments, admission to ICU. Discharge Plan Departure Patient Disposition: Admitted As Inpatient Clinical Impression: Acute metabolic encephalopathy, Alcohol intoxication, Alcohol use disorder Admit Date/Time: 11/07/23 08:17 Admit Provider: Bravo Castro
[2023-11-07 01:18] LABS: Ethanol (ETOH) 275 mg/dL
[2023-11-07 01:52] LABS: UR Morphine/Opiate cutoff 300 Negative (Negative); Ur Creatinine Normal (Normal); Ur Specific Gravity Normal (Normal); Urine Amphetamines Positive (Negative); Urine Barbiturates Negative (Negative); Urine Benzodiazepines Negative (Negative); Urine Cocaine Negative (Negative); Urine MDMA Negative (Negative); Urine Methadone Negative (Negative); Urine Methamphetamines Negative (Negative); Urine Oxycodone Negative (Negative); Urine Phencyclidine Negative (Negative); Urine Tetrahydrocannabinol Negative (Negative); Urine Tricyclic Antidepressant Negative (Negative); Urine pH Normal (Normal)
[2023-11-07] MEDS: THIAMINE 200 MG in SODIUM CHLORIDE 0.9% 100 ML 408 MG IV (01:59)
[2023-11-07] MEDS: propofoL 1,000 MG/100 ML VIAL 5.307 MG IV (02:15)
[2023-11-07 02:29] LABS: Creatine Kinase 79 U/L (30-135)
[2023-11-07 02:30] LABS: Reflexed Lactate in 2 Hours Y
[2023-11-07 02:32] LABS: Base Excess ABG -4.9 mmol/L (-2-3); Fractionated Inspired Oxygen 40; HCO3 ABG 20 mmol/L (23-27); Oxygen Saturation ABG 100 % (95-100); PCO2 ABG 37.5 mmHg (35-45); PO2 ABG 173 mmHg (80-100); TCO2 ABG 20 mmol/L (23-27); pH ABG 7.34 (7.35-7.45)
[2023-11-07 02:33] LABS: Allen Test for ABG Passed? Yes, Passed; Blood Gas Collection Site Right Radial; Blood Gas Mode Assist Cont Ventilat; Delivery System VENT; PEEP 5; Respiratory Rate 20; Tidal Volume 400
--- NOTE | 2023-11-07 02:35 | PC.NURSE ---
Pt pulling at restraints and triggering vent alarm. Titrated Propofol for effect. Pt resting comfortably. VSS. See flow chart.
[2023-11-07] MEDS: propofoL 1,000 MG/100 ML VIAL 12.383 MG IV (03:21)
[2023-11-07 03:52] LABS: Lactate 2HR (Lactic Acid Rflx) 2.3 mmol/L (0.7-2.1)
--- NOTE | 2023-11-07 05:20 | PC.NURSE ---
Bright red blood noted to OG tubing. Suction was set to medium, changed to low intermittent suction and Dr Parekh notified. New orders received for protonix IV. Administered medication. BP trending down. aware. NS hung and pressure bag applied.
[2023-11-07] MEDS: PANTOPRAZOLE 40 MG VIAL 80 MG IV (05:21)
--- NOTE | 2023-11-07 06:31 | PC.NURSE ---
Clear and dark brown fluid from OG tube at this time. NS bolus complete and BP improvign to 89/55. aware.
[2023-11-07] MEDS: propofoL 1,000 MG/100 ML VIAL 7.076 MG IV (06:35)
--- NOTE | 2023-11-07 07:51 | PC.NURSE ---
Pt becoming agitated, gagging, attempting to remove ETT. Additional staff assistance at the bedside. Pt able to squeeze this RNs hands bilaterally on command. Moving all extremities well. Provider called to the bedside. Per provider bolus patient with 100mg propofol and titrate drip rate up to keep patient sedated.
[2023-11-07] MEDS: CHLORHEXIDINE GLUCONATE 15 ML CUP PO ×3 (08:39→17:41)
[2023-11-07] MEDS: propofoL 1,000 MG/100 ML VIAL 21.228 MG IV (11:05)
[2023-11-07] MEDS: fentaNYL 100 MCG/2 ML INJ (11:55)
[2023-11-07] MEDS: propofoL 1,000 MG/100 ML VIAL 17.69 MG IV (11:56)
[2023-11-07] MEDS: fentaNYL 1,000 MCG in DEXTROSE 5% IN WATER 230 ML 10.319 MCG IV (11:57)
[2023-11-07] MEDS: SODIUM CHLORIDE 0.9% 1,000 ML 75 ML IV (11:59)
[2023-11-07] MEDS: dexmedeTOMIDine in 0.9 % NaCL 400 MCG/100 ML PLAST..BAG 14.742 MCG IV ×3 (12:02→22:20)
[2023-11-07] MEDS: ENOXAPARIN 40 MG/0.4 ML SYRINGE SUBCUT (12:05)
--- NOTE | 2023-11-07 12:43 | PC.ADMIT ---
1017 th No 206 Admission Note: Patient admitted from the ED via stretcher, intubated. Extremely agitated and restless, requiring multiple staff members to hold down to prevent harm to patient and staff. Not following commands. Unable to complete admission assessment adequately due to patient's condition. Dr Castro notified of patient arrival, will contact tele-ICU doctor shortly. The patient,Neha Ulloa,23 y/o, was given written information regarding hospital policies, unit procedures and contact persons. Patient's smoking status: . Vital Signs - 8 hr 11/07/23 04:56 11/07/23 04:56 11/07/23 04:58 Temperature Pulse Rate 83 81 Respiratory Rate 20 20 Blood Pressure 107/61 Pulse Oximetry 100 100 11/07/23 04:58 11/07/23 05:00 11/07/23 05:00 Temperature Pulse Rate 80 Respiratory Rate 20 Blood Pressure 100/56 L 96/54 L Pulse Oximetry 100 11/07/23 05:02 11/07/23 05:02 11/07/23 05:04 Temperature Pulse Rate 80 80 Respiratory Rate 20 20 Blood Pressure 92/51 L Pulse Oximetry 100 100 11/07/23 05:04 11/07/23 05:06 11/07/23 05:06 Temperature Pulse Rate 80 Respiratory Rate 20 Blood Pressure 92/50 L 95/52 L Pulse Oximetry 100 11/07/23 05:08 11/07/23 05:08 11/07/23 05:10 Temperature Pulse Rate 80 80 Respiratory Rate 20 20 Blood Pressure 93/51 L Pulse Oximetry 99 99 11/07/23 05:10 11/07/23 05:12 11/07/23 05:12 Temperature Pulse Rate 83 Respiratory Rate 20 Blood Pressure 95/53 L 97/54 L Pulse Oximetry 100 11/07/23 05:14 11/07/23 05:14 11/07/23 05:16 Temperature Pulse Rate 87 92 H Respiratory Rate 20 19 Blood Pressure 108/67 Pulse Oximetry 100 100 11/07/23 05:16 11/07/23 05:18 11/07/23 05:18 Temperature Pulse Rate 91 H Respiratory Rate 20 Blood Pressure 105/68 103/61 Pulse Oximetry 100 11/07/23 05:20 11/07/23 05:20 11/07/23 05:22 Temperature Pulse Rate 87 85 Respiratory Rate 20 20 Blood Pressure 94/52 L Pulse Oximetry 100 99 11/07/23 05:22 11/07/23 05:23 11/07/23 05:23 Temperature Pulse Rate 85 Respiratory Rate 20 Blood Pressure 90/55 L 90/55 L Pulse Oximetry 99 11/07/23 05:24 11/07/23 05:24 11/07/23 05:26 Temperature Pulse Rate 84 83 Respiratory Rate 20 20 Blood Pressure 89/54 L Pulse Oximetry 99 99 11/07/23 05:11/07/23 05:28 11/07/23 05:28 Temperature Pulse Rate 82 Respiratory Rate 20 Blood Pressure 89/50 L 91/52 L Pulse Oximetry 99 11/07/23 05:30 11/07/23 05:30 11/07/23 05:32 Temperature Pulse Rate 84 80 Respiratory Rate 20 20 Blood Pressure 89/51 L Pulse Oximetry 99 100 11/07/23 05:32 11/07/23 05:34 11/07/23 05:34 Temperature Pulse Rate 79 Respiratory Rate 20 Blood Pressure 93/54 L 89/54 L Pulse Oximetry 100 11/07/23 05:36 11/07/23 05:36 11/07/23 05:38 Temperature Pulse Rate 79 Respiratory Rate 20 Blood Pressure 87/52 L 87/52 L Pulse Oximetry 100 11/07/23 05:38 11/07/23 05:40 11/07/23 05:40 Temperature Pulse Rate 78 78 Respiratory Rate 20 20 Blood Pressure 86/51 L Pulse Oximetry 100 99 11/07/23 05:42 11/07/23 05:42 11/07/23 05:45 Temperature Pulse Rate 78 89 Respiratory Rate 20 20 Blood Pressure 89/51 L Pulse Oximetry 100 100 11/07/23 05:45 11/07/23 05:46 11/07/23 05:46 Temperature Pulse Rate 88 Respiratory Rate 20 Blood Pressure 99/61 100/58 L Pulse Oximetry 100 11/07/23 05:48 11/07/23 05:48 11/07/23 05:50 Temperature Pulse Rate 85 84 Respiratory Rate 20 20 Blood Pressure 98/57 L Pulse Oximetry 100 100 11/07/23 05:50 11/07/23 05:52 11/07/23 05:52 Temperature Pulse Rate 84 Respiratory Rate 20 Blood Pressure 97/56 L 95/52 L Pulse Oximetry 100 11/07/23 06:28 11/07/23 06:28 11/07/23 06:30 Temperature Pulse Rate 93 H 88 Respiratory Rate 20 20 Blood Pressure 105/66 Pulse Oximetry 100 100 11/07/23 06:30 11/07/23 06:32 11/07/23 06:32 Temperature Pulse Rate 85 Respiratory Rate 20 Blood Pressure 106/64 100/60 Pulse Oximetry 100 11/07/23 06:34 11/07/23 06:34 11/07/23 06:36 Temperature Pulse Rate 84 Respiratory Rate 20 Blood Pressure 99/60 101/58 L Pulse Oximetry 100 11/07/23 06:36 11/07/23 06:38 11/07/23 06:38 Temperature Pulse Rate 83 82 Respiratory Rate 20 20 Blood Pressure 101/58 L Pulse Oximetry 100 100 11/07/23 06:40 11/07/23 06:40 11/07/23 06:42 Temperature Pulse Rate 81 84 Respiratory Rate 20 23 Blood Pressure 101/57 L Pulse Oximetry 100 100 11/07/23 06:42 11/07/23 06:44 11/07/23 06:44 Temperature Pulse Rate 90 Respiratory Rate 20 Blood Pressure 88/57 L 101/55 L Pulse Oximetry 100 11/07/23 06:46 11/07/23 06:46 11/07/23 06:48 Temperature Pulse Rate 85 89 Respiratory Rate 21 Blood Pressure 94/54 L Pulse Oximetry 100 11/07/23 06:48 11/07/23 06:50 11/07/23 06:50 Temperature Pulse Rate 88 Respiratory Rate 20 Blood Pressure 91/57 L 103/63 Pulse Oximetry 100 11/07/23 06:52 11/07/23 06:52 11/07/23 06:54 Temperature Pulse Rate 83 85 Respiratory Rate 20 20 Blood Pressure 103/59 L Pulse Oximetry 100 100 11/07/23 06:54 11/07/23 06:56 11/07/23 06:56 Temperature Pulse Rate 83 Respiratory Rate 20 Blood Pressure 100/57 L 94/54 L Pulse Oximetry 100 11/07/23 06:58 11/07/23 06:58 11/07/23 07:00 Temperature Pulse Rate 82 Respiratory Rate 20 Blood Pressure 94/54 L 91/52 L Pulse Oximetry 100 11/07/23 07:00 11/07/23 07:02 11/07/23 07:02 Temperature Pulse Rate 81 80 Respiratory Rate 20 20 Blood Pressure 89/50 L Pulse Oximetry 100 100 11/07/23 07:04 11/07/23 07:04 11/07/23 07:06 Temperature Pulse Rate 80 79 Respiratory Rate 20 20 Blood Pressure 92/52 L Pulse Oximetry 100 100 11/07/23 07:06 11/07/23 07:08 11/07/23 07:08 Temperature Pulse Rate 78 Respiratory Rate 20 Blood Pressure 89/50 L 93/50 L Pulse Oximetry 100 11/07/23 07:10 11/07/23 07:10 11/07/23 07:12 Temperature Pulse Rate 86 91 H Respiratory Rate 20 Blood Pressure 98/58 L Pulse Oximetry 100 100 11/07/23 07:12 11/07/23 07:15 11/07/23 07:15 Temperature Pulse Rate 85 Respiratory Rate 20 Blood Pressure 103/64 105/65 Pulse Oximetry 100 11/07/23 07:20 11/07/23 07:20 11/07/23 07:25 Temperature Pulse Rate 82 Respiratory Rate 20 Blood Pressure 99/60 99/59 L Pulse Oximetry 100 11/07/23 07:25 11/07/23 07:30 11/07/23 07:30 Temperature Pulse Rate 80 79 Respiratory Rate 20 20 Blood Pressure 98/56 L Pulse Oximetry 100 100 11/07/23 07:35 11/07/23 07:35 11/07/23 07:40 Temperature Pulse Rate 78 86 Respiratory Rate 20 22 Blood Pressure 96/55 L Pulse Oximetry 100 100 11/07/23 07:40 11/07/23 07:45 11/07/23 07:45 Temperature Pulse Rate 100 H Respiratory Rate 27 H Blood Pressure 101/63 110/67 Pulse Oximetry 11/07/23 07:50 11/07/23 07:50 11/07/23 07:55 Temperature Pulse Rate 92 H 92 H Respiratory Rate 20 20 Blood Pressure 105/61 Pulse Oximetry 100 97 11/07/23 07:55 11/07/23 08:00 11/07/23 08:00 Temperature Pulse Rate 87 Respiratory Rate 20 Blood Pressure 108/58 L 106/55 L Pulse Oximetry 97 11/07/23 08:05 11/07/23 08:05 11/07/23 08:10 Temperature Pulse Rate 84 81 Respiratory Rate 20 20 Blood Pressure 107/56 L Pulse Oximetry 98 98 11/07/23 08:10 11/07/23 08:15 11/07/23 08:15 Temperature Pulse Rate 86 Respiratory Rate 22 Blood Pressure 100/59 L 102/55 L Pulse Oximetry 97 11/07/23 08:20 11/07/23 08:20 11/07/23 08:24 Temperature Pulse Rate 93 H 97 H Respiratory Rate 20 21 Blood Pressure 103/63 Pulse Oximetry 100 11/07/23 08:25 11/07/23 08:25 11/07/23 08:26 Temperature 98.2 F Pulse Rate 97 H Respiratory Rate 22 Blood Pressure 104/62 Pulse Oximetry 100 11/07/23 08:30 11/07/23 08:30 11/07/23 08:35 Temperature Pulse Rate 100 H 95 H Respiratory Rate 20 18 Blood Pressure 106/65 Pulse Oximetry 100 100 11/07/23 08:35 11/07/23 08:40 11/07/23 08:40 Temperature Pulse Rate 90 Respiratory Rate 18 Blood Pressure 111/61 107/61 Pulse Oximetry 100 11/07/23 08:45 11/07/23 08:45 11/07/23 08:50 Temperature Pulse Rate 86 Respiratory Rate 18 Blood Pressure 111/61 111/65 Pulse Oximetry 100 11/07/23 08:50 11/07/23 08:55 11/07/23 08:55 Temperature Pulse Rate 87 87 Respiratory Rate 18 19 Blood Pressure 103/63 Pulse Oximetry 100 100 11/07/23 09:00 11/07/23 09:00 11/07/23 09:05 Temperature Pulse Rate 88 Respiratory Rate 18 Blood Pressure 109/66 112/64 Pulse Oximetry 100 11/07/23 09:05 11/07/23 09:10 11/07/23 09:10 Temperature Pulse Rate 86 89 Respiratory Rate 18 18 Blood Pressure 106/61 Pulse Oximetry 100 100 11/07/23 09:15 11/07/23 09:15 11/07/23 09:25 Temperature Pulse Rate 89 Respiratory Rate 19 Blood Pressure 108/64 108/62 Pulse Oximetry 100 11/07/23 09:25 11/07/23 09:30 11/07/23 09:30 Temperature Pulse Rate 102 H 89 Respiratory Rate 26 H 19 Blood Pressure 105/60 Pulse Oximetry 98 100 11/07/23 09:35 11/07/23 09:35 11/07/23 09:40 Temperature Pulse Rate 85 Respiratory Rate 18 Blood Pressure 108/62 103/61 Pulse Oximetry 100 11/07/23 09:40 11/07/23 09:45 11/07/23 09:45 Temperature Pulse Rate 82 81 Respiratory Rate 19 18 Blood Pressure 103/58 L Pulse Oximetry 100 100 11/07/23 09:50 11/07/23 09:50 11/07/23 09:55 Temperature Pulse Rate 79 Respiratory Rate 19 Blood Pressure 98/56 L 97/55 L Pulse Oximetry 99 11/07/23 09:55 11/07/23 10:00 11/07/23 10:00 Temperature Pulse Rate 79 78 Respiratory Rate 18 18 Blood Pressure 97/54 L Pulse Oximetry 98 97 11/07/23 10:05 11/07/23 10:05 11/07/23 10:10 Temperature Pulse Rate 78 78 Respiratory Rate 18 18 Blood Pressure 96/53 L Pulse Oximetry 97 98 11/07/23 10:10 11/07/23 10:15 11/07/23 10:15 Temperature Pulse Rate 79 Respiratory Rate 18 Blood Pressure 98/57 L 98/56 L Pulse Oximetry 97 11/07/23 10:20 11/07/23 10:20 11/07/23 10:25 Temperature Pulse Rate 79 Respiratory Rate 18 Blood Pressure 100/59 L 98/55 L Pulse Oximetry 98 11/07/23 10:25 11/07/23 10:30 11/07/23 10:30 Temperature Pulse Rate 78 79 Respiratory Rate 18 18 Blood Pressure 99/57 L Pulse Oximetry 98 98 11/07/23 10:35 11/07/23 10:35 11/07/23 10:42 Temperature Pulse Rate 79 Respiratory Rate 18 Blood Pressure 100/57 L 113/72 Pulse Oximetry 98 11/07/23 10:42 11/07/23 10:45 11/07/23 10:45 Temperature Pulse Rate 90 92 H Respiratory Rate 20 26 H Blood Pressure 111/73 Pulse Oximetry 100 100 11/07/23 10:50 11/07/23 10:50 11/07/23 10:55 Temperature Pulse Rate 103 H Respiratory Rate Blood Pressure 106/72 110/59 L Pulse Oximetry 11/07/23 10:55 11/07/23 11:00 11/07/23 11:00 Temperature Pulse Rate 89 94 H Respiratory Rate 18 Blood Pressure 106/60 Pulse Oximetry 100 100 11/07/23 11:05 11/07/23 11:05 11/07/23 11:10 Temperature Pulse Rate 86 Respiratory Rate 19 Blood Pressure 104/59 L 107/59 L Pulse Oximetry 100 11/07/23 11:10 11/07/23 11:15 11/07/23 11:15 Temperature Pulse Rate 84 92 H Respiratory Rate 18 25 H Blood Pressure 103/61 Pulse Oximetry 99 100 11/07/23 11:20 11/07/23 11:20 11/07/23 11:25 Temperature Pulse Rate 88 Respiratory Rate 19 Blood Pressure 106/60 106/59 L Pulse Oximetry 100 11/07/23 11:25 11/07/23 11:30 11/07/23 11:30 Temperature Pulse Rate 85 82 Respiratory Rate 18 18 Blood Pressure 106/59 L Pulse Oximetry 99 99 11/07/23 11:35 11/07/23 11:35 Temperature Pulse Rate 80 Respiratory Rate 18 Blood Pressure 101/58 L Pulse Oximetry 98
--- NOTE | 2023-11-07 13:35 | P.HP_ITS ---
History of Present Illness History of Present Illness Date Patient Seen: 11/07/23 Time Patient Seen: 13:36 Chief complaint: STEFAN Narrative: Patient unable to participate in history due to her current sedation. Per ER Provider, 23-year-old female with unknown past medical history presents as an STEFAN with law enforcement. Patient was reportedly found outside rolling around on the ground and screaming. She was extremely agitated and required numerous law enforcement personnel to restrain the patient. She continued to be extremely agitated and not following commands and so EMS personnel administered 300 mg of IM ketamine for sedation. Patient arrived extremely somnolent, not following commands. Initially arrived as a Marcelle Sanford This is a 23 F arrived as above. In reviewing the police report patient was stumbling in the street, walking around without shoes on and when police responded she was combative, smelled of intoxicants, and was falling repeatedly. She was brought in for intoxication, was given ketamine, and ultimately intubated in the emergency room for airway protection. She was still combative a few hours later with sedation vacation. She was only on propofol, was still combative on arrival to the ICU. Placed on fentanyl and precedex infusions as well with improvement in sedation. Outpatient medications available for review were last fill in 07/2023, nothing recent. List includes, duloxetine, buproprion, hydroxyzine, lorazepam, and propranolol. Meds Home Medications and Allergies Allergies Allergy/AdvReac Type Severity Reaction Status Date / Time No Known Drug Allergies Allergy Verified 11/07/23 01:27 Review of Systems Review of Systems Narrative: Unable to perform Exam Vital Signs (past 8 hours): - 11/07/23 05:36 11/07/23 05:36 11/07/23 05:38 Temperature Pulse Rate 79 Respiratory Rate 20 Blood Pressure 87/52 L 87/52 L Pulse Oximetry 100 Oxygen Delivery Method 11/07/23 05:38 11/07/23 05:40 11/07/23 05:40 Temperature Pulse Rate 78 78 Respiratory Rate 20 20 Blood Pressure 86/51 L Pulse Oximetry 100 99 Oxygen Delivery Method 11/07/23 05:42 11/07/23 05:42 11/07/23 05:45 Temperature Pulse Rate 78 89 Respiratory Rate 20 20 Blood Pressure 89/51 L Pulse Oximetry 100 100 Oxygen Delivery Method 11/07/23 05:45 11/07/23 05:46 11/07/23 05:46 Temperature Pulse Rate 88 Respiratory Rate 20 Blood Pressure 99/61 100/58 L Pulse Oximetry 100 Oxygen Delivery Method 11/07/23 05:48 11/07/23 05:48 11/07/23 05:50 Temperature Pulse Rate 85 84 Respiratory Rate 20 20 Blood Pressure 98/57 L Pulse Oximetry 100 100 Oxygen Delivery Method 11/07/23 05:50 11/07/23 05:52 11/07/23 05:52 Temperature Pulse Rate 84 Respiratory Rate 20 Blood Pressure 97/56 L 95/52 L Pulse Oximetry 100 Oxygen Delivery Method 11/07/23 06:28 11/07/23 06:28 11/07/23 06:30 Temperature Pulse Rate 93 H 88 Respiratory Rate 20 20 Blood Pressure 105/66 Pulse Oximetry 100 100 Oxygen Delivery Method 11/07/23 06:30 11/07/23 06:32 11/07/23 06:32 Temperature Pulse Rate 85 Respiratory Rate 20 Blood Pressure 106/64 100/60 Pulse Oximetry 100 Oxygen Delivery Method 11/07/23 06:34 11/07/23 06:34 11/07/23 06:36 Temperature Pulse Rate 84 Respiratory Rate 20 Blood Pressure 99/60 101/58 L Pulse Oximetry 100 Oxygen Delivery Method 11/07/23 06:36 11/07/23 06:38 11/07/23 06:38 Temperature Pulse Rate 83 82 Respiratory Rate 20 20 Blood Pressure 101/58 L Pulse Oximetry 100 100 Oxygen Delivery Method 11/07/23 06:40 11/07/23 06:40 11/07/23 06:42 Temperature Pulse Rate 81 84 Respiratory Rate 20 23 Blood Pressure 101/57 L Pulse Oximetry 100 100 Oxygen Delivery Method 11/07/23 06:42 11/07/23 06:44 11/07/23 06:44 Temperature Pulse Rate 90 Respiratory Rate 20 Blood Pressure 88/57 L 101/55 L Pulse Oximetry 100 Oxygen Delivery Method 11/07/23 06:46 11/07/23 06:46 11/07/23 06:48 Temperature Pulse Rate 85 89 Respiratory Rate 21 Blood Pressure 94/54 L Pulse Oximetry 100 Oxygen Delivery Method 11/07/23 06:48 11/07/23 06:50 11/07/23 06:50 Temperature Pulse Rate 88 Respiratory Rate 20 Blood Pressure 91/57 L 103/63 Pulse Oximetry 100 Oxygen Delivery Method 11/07/23 06:52 11/07/23 06:52 11/07/23 06:54 Temperature Pulse Rate 83 85 Respiratory Rate 20 20 Blood Pressure 103/59 L Pulse Oximetry 100 100 Oxygen Delivery Method 11/07/23 06:54 11/07/23 06:56 11/07/23 06:56 Temperature Pulse Rate 83 Respiratory Rate 20 Blood Pressure 100/57 L 94/54 L Pulse Oximetry 100 Oxygen Delivery Method 11/07/23 06:58 11/07/23 06:58 11/07/23 07:00 Temperature Pulse Rate 82 Respiratory Rate 20 Blood Pressure 94/54 L 91/52 L Pulse Oximetry 100 Oxygen Delivery Method 11/07/23 07:00 11/07/23 07:02 11/07/23 07:02 Temperature Pulse Rate 81 80 Respiratory Rate 20 20 Blood Pressure 89/50 L Pulse Oximetry 100 100 Oxygen Delivery Method 11/07/23 07:04 11/07/23 07:04 11/07/23 07:06 Temperature Pulse Rate 80 79 Respiratory Rate 20 20 Blood Pressure 92/52 L Pulse Oximetry 100 100 Oxygen Delivery Method 11/07/23 07:06 11/07/23 07:08 11/07/23 07:08 Temperature Pulse Rate 78 Respiratory Rate 20 Blood Pressure 89/50 L 93/50 L Pulse Oximetry 100 Oxygen Delivery Method 11/07/23 07:10 11/07/23 07:10 11/07/23 07:12 Temperature Pulse Rate 86 91 H Respiratory Rate 20 Blood Pressure 98/58 L Pulse Oximetry 100 100 Oxygen Delivery Method 11/07/23 07:12 11/07/23 07:15 11/07/23 07:15 Temperature Pulse Rate 85 Respiratory Rate 20 Blood Pressure 103/64 105/65 Pulse Oximetry 100 Oxygen Delivery Method 11/07/23 07:20 11/07/23 07:20 11/07/23 07:25 Temperature Pulse Rate 82 Respiratory Rate 20 Blood Pressure 99/60 99/59 L Pulse Oximetry 100 Oxygen Delivery Method 11/07/23 07:25 11/07/23 07:30 11/07/23 07:30 Temperature Pulse Rate 80 79 Respiratory Rate 20 20 Blood Pressure 98/56 L Pulse Oximetry 100 100 Oxygen Delivery Method 11/07/23 07:35 11/07/23 07:35 11/07/23 07:40 Temperature Pulse Rate 78 86 Respiratory Rate 20 22 Blood Pressure 96/55 L Pulse Oximetry 100 100 Oxygen Delivery Method 11/07/23 07:40 11/07/23 07:45 11/07/23 07:45 Temperature Pulse Rate 100 H Respiratory Rate 27 H Blood Pressure 101/63 110/67 Pulse Oximetry Oxygen Delivery Method 11/07/23 07:50 11/07/23 07:50 11/07/23 07:55 Temperature Pulse Rate 92 H 92 H Respiratory Rate 20 20 Blood Pressure 105/61 Pulse Oximetry 100 97 Oxygen Delivery Method 11/07/23 07:55 11/07/23 08:00 11/07/23 08:00 Temperature Pulse Rate 87 Respiratory Rate 20 Blood Pressure 108/58 L 106/55 L Pulse Oximetry 97 Oxygen Delivery Method 11/07/23 08:05 11/07/23 08:05 11/07/23 08:10 Temperature Pulse Rate 84 81 Respiratory Rate 20 20 Blood Pressure 107/56 L Pulse Oximetry 98 98 Oxygen Delivery Method 11/07/23 08:10 11/07/23 08:15 11/07/23 08:15 Temperature Pulse Rate 86 Respiratory Rate 22 Blood Pressure 100/59 L 102/55 L Pulse Oximetry 97 Oxygen Delivery Method 11/07/23 08:20 11/07/23 08:20 11/07/23 08:24 Temperature Pulse Rate 93 H 97 H Respiratory Rate 20 21 Blood Pressure 103/63 Pulse Oximetry 100 Oxygen Delivery Method 11/07/23 08:25 11/07/23 08:25 11/07/23 08:26 Temperature 98.2 F Pulse Rate 97 H Respiratory Rate 22 Blood Pressure 104/62 Pulse Oximetry 100 Oxygen Delivery Method 11/07/23 08:30 11/07/23 08:30 11/07/23 08:35 Temperature Pulse Rate 100 H 95 H Respiratory Rate 20 18 Blood Pressure 106/65 Pulse Oximetry 100 100 Oxygen Delivery Method 11/07/23 08:35 11/07/23 08:40 11/07/23 08:40 Temperature Pulse Rate 90 Respiratory Rate 18 Blood Pressure 111/61 107/61 Pulse Oximetry 100 Oxygen Delivery Method 11/07/23 08:45 11/07/23 08:45 11/07/23 08:50 Temperature Pulse Rate 86 Respiratory Rate 18 Blood Pressure 111/61 111/65 Pulse Oximetry 100 Oxygen Delivery Method 11/07/23 08:50 11/07/23 08:55 11/07/23 08:55 Temperature Pulse Rate 87 87 Respiratory Rate 18 19 Blood Pressure 103/63 Pulse Oximetry 100 100 Oxygen Delivery Method 11/07/23 09:00 11/07/23 09:00 11/07/23 09:05 Temperature Pulse Rate 88 Respiratory Rate 18 Blood Pressure 109/66 112/64 Pulse Oximetry 100 Oxygen Delivery Method 11/07/23 09:05 11/07/23 09:10 11/07/23 09:10 Temperature Pulse Rate 86 89 Respiratory Rate 18 18 Blood Pressure 106/61 Pulse Oximetry 100 100 Oxygen Delivery Method 11/07/23 09:15 11/07/23 09:15 11/07/23 09:24 Temperature Pulse Rate 89 Respiratory Rate 19 Blood Pressure 108/64 Pulse Oximetry 100 Oxygen Delivery Method Mechanical Ventilation 11/07/23 09:25 11/07/23 09:25 11/07/23 09:30 Temperature Pulse Rate 102 H 89 Respiratory Rate 26 H 19 Blood Pressure 108/62 Pulse Oximetry 98 100 Oxygen Delivery Method 11/07/23 09:30 11/07/23 09:35 11/07/23 09:35 Temperature Pulse Rate 85 Respiratory Rate 18 Blood Pressure 105/60 108/62 Pulse Oximetry 100 Oxygen Delivery Method 11/07/23 09:40 11/07/23 09:40 11/07/23 09:45 Temperature Pulse Rate 82 Respiratory Rate 19 Blood Pressure 103/61 103/58 L Pulse Oximetry 100 Oxygen Delivery Method 11/07/23 09:45 11/07/23 09:50 11/07/23 09:50 Temperature Pulse Rate 81 79 Respiratory Rate 18 19 Blood Pressure 98/56 L Pulse Oximetry 100 99 Oxygen Delivery Method 11/07/23 09:55 11/07/23 09:55 11/07/23 10:00 Temperature Pulse Rate 79 Respiratory Rate 18 Blood Pressure 97/55 L 97/54 L Pulse Oximetry 98 Oxygen Delivery Method 11/07/23 10:00 11/07/23 10:05 11/07/23 10:05 Temperature Pulse Rate 78 78 Respiratory Rate 18 18 Blood Pressure 96/53 L Pulse Oximetry 97 97 Oxygen Delivery Method 11/07/23 10:10 11/07/23 10:10 11/07/23 10:15 Temperature Pulse Rate 78 Respiratory Rate 18 Blood Pressure 98/57 L 98/56 L Pulse Oximetry 98 Oxygen Delivery Method 11/07/23 10:15 11/07/23 10:20 11/07/23 10:20 Temperature Pulse Rate 79 79 Respiratory Rate 18 18 Blood Pressure 100/59 L Pulse Oximetry 97 98 Oxygen Delivery Method 11/07/23 10:25 11/07/23 10:25 11/07/23 10:30 Temperature Pulse Rate 78 Respiratory Rate 18 Blood Pressure 98/55 L 99/57 L Pulse Oximetry 98 Oxygen Delivery Method 11/07/23 10:30 11/07/23 10:35 11/07/23 10:35 Temperature Pulse Rate 79 79 Respiratory Rate 18 18 Blood Pressure 100/57 L Pulse Oximetry 98 98 Oxygen Delivery Method 11/07/23 10:42 11/07/23 10:42 11/07/23 10:45 Temperature Pulse Rate 90 92 H Respiratory Rate 20 26 H Blood Pressure 113/72 Pulse Oximetry 100 100 Oxygen Delivery Method 11/07/23 10:45 11/07/23 10:50 11/07/23 10:50 Temperature Pulse Rate 103 H Respiratory Rate Blood Pressure 111/73 106/72 Pulse Oximetry Oxygen Delivery Method 11/07/23 10:55 11/07/23 10:55 11/07/23 11:00 Temperature Pulse Rate 89 Respiratory Rate 18 Blood Pressure 110/59 L 106/60 Pulse Oximetry 100 Oxygen Delivery Method 11/07/23 11:00 11/07/23 11:05 11/07/23 11:05 Temperature Pulse Rate 94 H 86 Respiratory Rate 19 Blood Pressure 104/59 L Pulse Oximetry 100 100 Oxygen Delivery Method 11/07/23 11:10 11/07/23 11:10 11/07/23 11:15 Temperature Pulse Rate 84 Respiratory Rate 18 Blood Pressure 107/59 L 103/61 Pulse Oximetry 99 Oxygen Delivery Method 11/07/23 11:15 11/07/23 11:20 11/07/23 11:20 Temperature Pulse Rate 92 H 88 Respiratory Rate 25 H 19 Blood Pressure 106/60 Pulse Oximetry 100 100 Oxygen Delivery Method 11/07/23 11:25 11/07/23 11:25 11/07/23 11:30 Temperature Pulse Rate 85 Respiratory Rate 18 Blood Pressure 106/59 L 106/59 L Pulse Oximetry 99 Oxygen Delivery Method 11/07/23 11:30 11/07/23 11:35 11/07/23 11:35 Temperature Pulse Rate 82 80 Respiratory Rate 18 18 Blood Pressure 101/58 L Pulse Oximetry 99 98 Oxygen Delivery Method Fraction of Inspired Oxygen 40 Oxygen Delivery Method Mechanical Ventilation Oxygen Flow Rate 3 Narrative Exam Narrative: Gen: Young female, no acute distress, intubated sedated WDWN CV: RRR no m/r/g Pulm: CTA b/l Abd: S ND Ext: no edema, scattered small abrasions Objective ECG Impression: NSR, prolonged QtC at 502. Labs 11/07/23 00:15 11/07/23 00:15 Labs: Laboratory Results - last 24 hr 11/07/23 11/07/23 11/07/23 00:15 00:45 01:36 WBC 7.9 RBC 4.09 Hgb 12.7 Hct 37.1 MCV 90.8 MCH 31.0 MCHC 34.2 RDW 13.7 Plt Count 321 Neut % (Auto) 46.5 L Lymph % (Auto) 41.2 H Zavala % (Auto) 11.9 Eos % (Auto) 0.1 L Baso % (Auto) 0.3 Neut # (Auto) 3700 Lymph # (Auto) 3300 Z[place]ala # (Auto) 900 Eos # (Auto) 0 Baso # (Auto) 0 ABG Sample Site Right radial ABG pH 7.34 L ABG pCO2 37.5 ABG pO2 173 H ABG HCO3 20 L ABG Total CO2 20 L ABG O2 Saturation 100 ABG Base Excess -4.9 L Respiration Rate 20 O2 Delivery Device Vent Mode of Support Assist cont ventilat FiO2 40 Tidal Volume 400 PEEP or CPAP 5 Sodium 145 Potassium 3.2 L Chloride 111 H Carbon Dioxide 21 L BUN 3 L Creatinine 0.83 Estimated GFR > 60 BUN/Creatinine Ratio 3.6 L Glucose 99 Lactate 4.6 H* Calcium 8.4 Total Bilirubin 0.5 AST 25 ALT 20 Alkaline Phosphatase 64 Total Creatine Kinase 79 Total Protein 7.6 Albumin 4.5 Globulin 3.1 Albumin/Globulin Ratio 1.5 Salicylates < 1.0 U Opiates 300ng/mL cut Negative Ur Oxycodone Screen Negative Urine Methadone Screen Negative Acetaminophen < 10 Ur Barbiturates Screen Negative U Tricyclic Antidepress Negative Ur Phencyclidine Scrn Negative Ur Amphetamines Screen Positive H U Methamphetamines Scrn Negative Ur MDMA Scrn (Ecstasy) Negative U Benzodiazepines Scrn Negative Urine Cocaine Screen Negative U Marijuana (THC) Screen Negative Urine pH Normal Urine Specific [place] Normal Ethyl Alcohol 275 H Ur Creatinine Normal 11/07/23 03:35 WBC RBC Hgb Hct MCV MCH MCHC RDW Plt Count Neut % (Auto) Lymph % (Auto) Zavala % (Auto) Eos % (Auto) Baso % (Auto) Neut # (Auto) Lymph # (Auto) Z[place] # (Auto) Eos # (Auto) Baso # (Auto) ABG Sample Site ABG pH ABG pCO2 ABG pO2 ABG HCO3 ABG Total CO2 ABG O2 Saturation ABG Base Excess Respiration Rate O2 Delivery Device Mode of Support FiO2 Tidal Volume PEEP or CPAP Sodium Potassium Chloride Carbon Dioxide BUN Creatinine Estimated GFR BUN/Creatinine Ratio Glucose Lactate 2.3 H Calcium Total Bilirubin AST ALT Alkaline Phosphatase Total Creatine Kinase Total Protein Albumin Globulin Albumin/Globulin Ratio Salicylates U Opiates 300ng/mL cut Ur Oxycodone Screen Urine Methadone Screen Acetaminophen Ur Barbiturates Screen U Tricyclic Antidepress Ur Phencyclidine Scrn Ur Amphetamines Screen U Methamphetamines Scrn Ur MDMA Scrn (Ecstasy) U Benzodiazepines Scrn Urine Cocaine Screen U Marijuana (THC) Screen Urine pH Urine Specific [place] Ethyl Alcohol Ur Creatinine Assessment & Plan Assessment & Plan narrative: 1. Acute toxic encephaopathy secondary to polysubstance use - EtOH level 275 on ER arrival. Also positive for amphetamines. Unclear if other substances involved at this time. - differential includes psychiatric disorder (depression with delirium or psychosis, amongst others), less likely alcohol withdrawal at this time given presentation. - infectious etiologies unlikely based on initial lab evaluation - for now continue sedation overnight, attempt sedation vacation tomorrow and wean sedation as tolerated. Will continue fentanyl, precedex, and propofol for now. - tele-stem roller consultation given patient intubation. 2. Prolonged Qt - likely related to intoxication / substance use. Qtc 502 on initial EKG. Will monitor on telemetry. 3. Hypokalemia - replete with IV for now, continue to monitor. Code: Presumed full, surrogate unable to determine at this time Code: Full, surrogate is patient's spouse DVT: Lovenox daily I have utilized all available immediate resources to obtain, update, or review the patient's current medications. Dispo: patient admitted under inpatient status. Unclear if will be able to discharge home or possible SNF, will have PT/OT evaluations. Additional history obtained via discussions with the ER provider. These discussions contributed to the creation of the above assessment and plan. I have reviewed patient's presenting documentation, labs, and imaging personally. I spent 40 minutes providing critical care management this patient. This excludes time spent in performing separately billed procedures. Time-Based Coding :: [TOTAL MINUTES] spent with patient and on the chart (including review of chart, obtaining history, exam, reviewing outside data, placing orders, documenting exam and treatment plan, and counseling patient) on [DATE].
[2023-11-07 13:42] LABS: MRSA (Nasal) PCR NOT DETECTED (Not Detect)
[2023-11-07] MEDS: POTASSIUM CHLORIDE IN WATER 10 MEQ/100 ML PIGGYBACK 100 MEQ IV ×4 (14:34→17:37)
[2023-11-07] MEDS: propofoL 1,000 MG/100 ML VIAL 14.152 MG IV ×2 (15:14→22:20)
--- NOTE | 2023-11-07 16:04 | PC.NURSE ---
Addendum entered by Young Madrigal R.N. 11/07/23 17:33: Cousin Katerin came to garbage pick up man patient's belongings, including wallet from safe, to bring to patient's grandparents. Original Note: Officer from [employer] brought by pt wallet that was found at [employer]. Wallet contents were verified with this nurse and Charge nurse Meghan PADGETT. Wallet placed in the safe, paperwork in pt chart.
--- NOTE | 2023-11-07 16:59 | PM.CN.EICU ---
History of Present Illness Consult details IF CAMERA ACTIVATED, patient seen via real-time interactive audiovisual communication: Camera activated Chief complaint: STEFAN Consent obtained for tele-doctor of naprapathic medicine care: Yes Patient Location: ICU Provider location (State): Other participants/roles: RN Narrative: 23-year-old female with unknown past medical history presents as an STEFAN with law enforcement, she was found outside rolling around on the ground and extremely agitated, received 300 mg of IM ketamine , after wich became somnolent and required intubation in ED , urine tox positive for alcohol and amphetamine. CTH & CXR with no acute changes. Currently on Propfol @ 50 mcg/kg/min, fentanyl at 0.7 mcg/kg/hr & precede at 1 mcg/kg/hr Assessment: # Acute toxic encephalopathy 2/2 polysubstance abuse # Mechanical ventilation Rec: Wean off propofol and fentanyl slowly as tolerated, keep precedex Received a dose of PPI, consider daily if not extubated in am Cont IV fluid, trend and replace electrolytes per protocol On Lovenox for vte ppx Discussed w/ rn progressive care unit time = 30 minutes Provider location = [place] Current Medications Current Medications Medications: Visit Medications (administered) Generic Name Dose Route Start Last Admin Trade Name Freq PRN Reason Stop Dose Admin Chlorhexidine Gluconate 15 ml 11/07/23 06:00 11/07/23 13:56 Chlorhexidine Gluconate 15 Ml Cup PO 15 ml Q6HR RAHUL Administration Enoxaparin Sodium 40 mg 11/07/23 11:32 11/07/23 12:05 Enoxaparin 40 Mg/0.4 Ml Syringe SUBCUT 40 mg DAILY RAHUL Administration Propofol 1,000 mg in 100 mls @ 17.69 mls/hr 11/07/23 11:15 11/07/23 16:55 Propofol IV 35 mcg/kg/min TITRATE RAHUL 12.383 mls/hr Titration Protocol 50 MCG/KG/MIN Sodium Chloride 1,000 mls @ 75 mls/hr 11/07/23 11:32 11/07/23 11:59 Normal Saline 0.9% IV 75 mls/hr CONT RAHUL Administration Fentanyl 1,000 mcg/ Dextrose 250 mls @ 10.319 mls/hr 11/07/23 11:32 11/07/23 11:57 IV 0.7 mcg/kg/hr TITRATE RAHUL 10.319 mls/hr Administration Protocol 0.7 MCG/KG/HR dexmedeTOMIDine in 0.9 % NaCL 400 mcg in 100 mls @ 2.948 mls/hr 11/07/23 12:00 11/07/23 16:53 Precedex IV 1 mcg/kg/hr TITRATE RAHUL 14.742 mls/hr Administration Protocol 0.2 MCG/KG/HR POTASSIUM CHLORIDE IN WATER 10 meq in 100 mls @ 100 mls/hr 11/07/23 14:30 11/07/23 16:36 Potassium Cl 10 Meq/100 Ml Tiffani IV 11/07/23 18:29 100 mls/hr Q1H RAHUL Administration Exam Vital Signs (past 8 hours): - 11/07/23 09:00 11/07/23 09:00 11/07/23 09:05 Pulse Rate 88 Respiratory Rate 18 Blood Pressure 109/66 112/64 Pulse Oximetry 100 Oxygen Delivery Method 11/07/23 09:05 11/07/23 09:10 11/07/23 09:10 Pulse Rate 86 89 Respiratory Rate 18 18 Blood Pressure 106/61 Pulse Oximetry 100 100 Oxygen Delivery Method 11/07/23 09:15 11/07/23 09:15 11/07/23 09:24 Pulse Rate 89 Respiratory Rate 19 Blood Pressure 108/64 Pulse Oximetry 100 Oxygen Delivery Method Mechanical Ventilation 11/07/23 09:25 11/07/23 09:25 11/07/23 09:30 Pulse Rate 102 H 89 Respiratory Rate 26 H 19 Blood Pressure 108/62 Pulse Oximetry 98 100 Oxygen Delivery Method 11/07/23 09:30 11/07/23 09:35 11/07/23 09:35 Pulse Rate 85 Respiratory Rate 18 Blood Pressure 105/60 108/62 Pulse Oximetry 100 Oxygen Delivery Method 11/07/23 09:40 11/07/23 09:40 11/07/23 09:45 Pulse Rate 82 Respiratory Rate 19 Blood Pressure 103/61 103/58 L Pulse Oximetry 100 Oxygen Delivery Method 11/07/23 09:45 11/07/23 09:50 11/07/23 09:50 Pulse Rate 81 79 Respiratory Rate 18 19 Blood Pressure 98/56 L Pulse Oximetry 100 99 Oxygen Delivery Method 11/07/23 09:55 11/07/23 09:55 11/07/23 10:00 Pulse Rate 79 Respiratory Rate 18 Blood Pressure 97/55 L 97/54 L Pulse Oximetry 98 Oxygen Delivery Method 11/07/23 10:00 11/07/23 10:05 11/07/23 10:05 Pulse Rate 78 78 Respiratory Rate 18 18 Blood Pressure 96/53 L Pulse Oximetry 97 97 Oxygen Delivery Method 11/07/23 10:10 11/07/23 10:10 11/07/23 10:15 Pulse Rate 78 Respiratory Rate 18 Blood Pressure 98/57 L 98/56 L Pulse Oximetry 98 Oxygen Delivery Method 11/07/23 10:15 11/07/23 10:20 11/07/23 10:20 Pulse Rate 79 79 Respiratory Rate 18 18 Blood Pressure 100/59 L Pulse Oximetry 97 98 Oxygen Delivery Method 11/07/23 10:25 11/07/23 10:25 11/07/23 10:30 Pulse Rate 78 Respiratory Rate 18 Blood Pressure 98/55 L 99/57 L Pulse Oximetry 98 Oxygen Delivery Method 11/07/23 10:30 11/07/23 10:35 11/07/23 10:35 Pulse Rate 79 79 Respiratory Rate 18 18 Blood Pressure 100/57 L Pulse Oximetry 98 98 Oxygen Delivery Method 11/07/23 10:42 11/07/23 10:42 11/07/23 10:45 Pulse Rate 90 92 H Respiratory Rate 20 26 H Blood Pressure 113/72 Pulse Oximetry 100 100 Oxygen Delivery Method 11/07/23 10:45 11/07/23 10:50 11/07/23 10:50 Pulse Rate 103 H Respiratory Rate Blood Pressure 111/73 106/72 Pulse Oximetry Oxygen Delivery Method 11/07/23 10:55 11/07/23 10:55 11/07/23 11:00 Pulse Rate 89 Respiratory Rate 18 Blood Pressure 110/59 L 106/60 Pulse Oximetry 100 Oxygen Delivery Method 11/07/23 11:00 11/07/23 11:05 11/07/23 11:05 Pulse Rate 94 H 86 Respiratory Rate 19 Blood Pressure 104/59 L Pulse Oximetry 100 100 Oxygen Delivery Method 11/07/23 11:10 11/07/23 11:10 11/07/23 11:15 Pulse Rate 84 Respiratory Rate 18 Blood Pressure 107/59 L 103/61 Pulse Oximetry 99 Oxygen Delivery Method 11/07/23 11:15 11/07/23 11:20 11/07/23 11:20 Pulse Rate 92 H 88 Respiratory Rate 25 H 19 Blood Pressure 106/60 Pulse Oximetry 100 100 Oxygen Delivery Method 11/07/23 11:25 11/07/23 11:25 11/07/23 11:30 Pulse Rate 85 Respiratory Rate 18 Blood Pressure 106/59 L 106/59 L Pulse Oximetry 99 Oxygen Delivery Method 11/07/23 11:30 11/07/23 11:35 11/07/23 11:35 Pulse Rate 82 80 Respiratory Rate 18 18 Blood Pressure 101/58 L Pulse Oximetry 99 98 Oxygen Delivery Method 11/07/23 12:15 11/07/23 12:24 11/07/23 12:24 Pulse Rate 71 67 Respiratory Rate 18 18 Blood Pressure 84/49 L Pulse Oximetry 99 99 Oxygen Delivery Method 11/07/23 12:30 11/07/23 12:30 11/07/23 13:00 Pulse Rate 66 Respiratory Rate 18 Blood Pressure 84/45 L 90/54 L Pulse Oximetry 99 Oxygen Delivery Method 11/07/23 13:00 11/07/23 13:30 11/07/23 14:00 Pulse Rate 63 65 Respiratory Rate 18 18 Blood Pressure 101/66 Pulse Oximetry 99 99 Oxygen Delivery Method 11/07/23 14:00 11/07/23 14:30 11/07/23 15:00 Pulse Rate 67 66 Respiratory Rate 18 18 Blood Pressure 110/68 Pulse Oximetry 99 100 Oxygen Delivery Method 11/07/23 15:00 11/07/23 15:30 11/07/23 16:00 Pulse Rate 67 67 65 Respiratory Rate 18 18 18 Blood Pressure Pulse Oximetry 99 99 99 Oxygen Delivery Method 11/07/23 16:00 Pulse Rate Respiratory Rate Blood Pressure 111/68 Pulse Oximetry Oxygen Delivery Method Fraction of Inspired Oxygen 40 Oxygen Delivery Method Mechanical Ventilation Oxygen Flow Rate 3 Objective Labs 11/07/23 00:15 11/07/23 00:15 Labs: Laboratory Results - last 24 hr 11/07/23 11/07/23 11/07/23 00:15 00:45 01:36 WBC 7.9 RBC 4.09 Hgb 12.7 Hct 37.1 MCV 90.8 MCH 31.0 MCHC 34.2 RDW 13.7 Plt Count 321 Neut % (Auto) 46.5 L Lymph % (Auto) 41.2 H [place] % (Auto) 11.9 Eos % (Auto) 0.1 L Baso % (Auto) 0.3 Neut # (Auto) 3700 Lymph # (Auto) 3300 [place] # (Auto) 900 Eos # (Auto) 0 Baso # (Auto) 0 ABG Sample Site Right radial ABG pH 7.34 L ABG pCO2 37.5 ABG pO2 173 H ABG HCO3 20 L ABG Total CO2 20 L ABG O2 Saturation 100 ABG Base Excess -4.9 L Respiration Rate 20 O2 Delivery Device Vent Mode of Support Assist cont ventilat FiO2 40 Tidal Volume 400 PEEP or CPAP 5 Sodium 145 Potassium 3.2 L Chloride 111 H Carbon Dioxide 21 L BUN 3 L Creatinine 0.83 Estimated GFR > 60 BUN/Creatinine Ratio 3.6 L Glucose 99 Lactate 4.6 H* Calcium 8.4 Total Bilirubin 0.5 AST 25 ALT 20 Alkaline Phosphatase 64 Total Creatine Kinase 79 Total Protein 7.6 Albumin 4.5 Globulin 3.1 Albumin/Globulin Ratio 1.5 Nasal Screen MRSA (PCR) Salicylates < 1.0 U Opiates 300ng/mL cut Negative Ur Oxycodone Screen Negative Urine Methadone Screen Negative Acetaminophen < 10 Ur Barbiturates Screen Negative U Tricyclic Antidepress Negative Ur Phencyclidine Scrn Negative Ur Amphetamines Screen Positive H U Methamphetamines Scrn Negative Ur MDMA Scrn (Ecstasy) Negative U Benzodiazepines Scrn Negative Urine Cocaine Screen Negative U Marijuana (THC) Screen Negative Urine pH Normal Urine Specific Cobb Normal Ethyl Alcohol 275 H Ur Creatinine Normal 11/07/23 11/07/23 03:35 12:00 WBC RBC Hgb Hct MCV MCH MCHC RDW Plt Count Neut % (Auto) Lymph % (Auto) Carlisle % (Auto) Eos % (Auto) Baso % (Auto) Neut # (Auto) Lymph # (Auto) [place] # (Auto) Eos # (Auto) Baso # (Auto) ABG Sample Site ABG pH ABG pCO2 ABG pO2 ABG HCO3 ABG Total CO2 ABG O2 Saturation ABG Base Excess Respiration Rate O2 Delivery Device Mode of Support FiO2 Tidal Volume PEEP or CPAP Sodium Potassium Chloride Carbon Dioxide BUN Creatinine Estimated GFR BUN/Creatinine Ratio Glucose Lactate 2.3 H Calcium Total Bilirubin AST ALT Alkaline Phosphatase Total Creatine Kinase Total Protein Albumin Globulin Albumin/Globulin Ratio Nasal Screen MRSA (PCR) Not detected Salicylates U Opiates 300ng/mL cut Ur Oxycodone Screen Urine Methadone Screen Acetaminophen Ur Barbiturates Screen U Tricyclic Antidepress Ur Phencyclidine Scrn Ur Amphetamines Screen U Methamphetamines Scrn Ur MDMA Scrn (Ecstasy) U Benzodiazepines Scrn Urine Cocaine Screen U Marijuana (THC) Screen Urine pH Urine Specific Cobb Ethyl Alcohol Ur Creatinine Assessment & Plan Time-Based Coding :: [TOTAL MINUTES] spent with patient and on the chart (including review of chart, obtaining history, exam, reviewing outside data, placing orders, documenting exam and treatment plan, and counseling patient) on [DATE].
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
--- NOTE | 2023-11-07 20:10 | PM.ICURNDS ---
- Date Patient Seen: 11/07/23 Time Patient Seen: 20:10 :: This patient was seen via real time interactive two-way audiovisual telecommunication. Note: Patient remains intubated and sedated. On precedex, fentanyl, and propofol gtt. Will sedation to seek RASS goal -1 to 0 and check SAT in the morning. D/w bedside RN.
[2023-11-08] VITALS (20 sets, daily range): BP systolic 108–123; BP diastolic 64–76; PULSE 57–73; RESP 12–20; TEMP 36.3–36.6; O2SAT 97–100
[2023-11-08] MEDS: SODIUM CHLORIDE 0.9% 1,000 ML 75 ML IV (00:31)
[2023-11-08] MEDS: CHLORHEXIDINE GLUCONATE 15 ML CUP PO ×2 (00:31→05:23)
[2023-11-08] MEDS: fentaNYL 1,000 MCG in DEXTROSE 5% IN WATER 230 ML 11.793 MCG IV (04:16)
[2023-11-08] MEDS: dexmedeTOMIDine in 0.9 % NaCL 400 MCG/100 ML PLAST..BAG 14.742 MCG IV (04:17)
[2023-11-08] MEDS: propofoL 1,000 MG/100 ML VIAL 14.152 MG IV (05:23)
--- NOTE | 2023-11-08 06:33 | P.TELICUPN_ITS ---
Subjective Subjective IF CAMERA ACTIVATED, patient seen via real-time interactive audiovisual communication: Camera activated Date Patient Seen: 11/08/23 Consent obtained for tele-convenience store manager care: Yes Patient Location: ICU Provider location (State): [place] Other participants/roles: MDR rounds team Interval history: remains intubated, 25% fio2, peep 5 Current Medications Current Medications Medications: Visit Medications (administered) Generic Name Dose Route Start Last Admin Trade Name Freq PRN Reason Stop Dose Admin Chlorhexidine Gluconate 15 ml 11/07/23 06:00 11/08/23 05:23 Chlorhexidine Gluconate 15 Ml Cup PO 15 ml Q6HR RAHUL Administration Enoxaparin Sodium 40 mg 11/07/23 11:32 11/07/23 12:05 Enoxaparin 40 Mg/0.4 Ml Syringe SUBCUT 40 mg DAILY RAHUL Administration Propofol 1,000 mg in 100 mls @ 17.69 mls/hr 11/07/23 11:15 11/08/23 05:23 Propofol IV 40 mcg/kg/min TITRATE RAHUL 14.152 mls/hr Administration Protocol 50 MCG/KG/MIN Sodium Chloride 1,000 mls @ 75 mls/hr 11/07/23 11:32 11/08/23 00:31 Normal Saline 0.9% IV 75 mls/hr CONT RAHUL Administration Fentanyl 1,000 mcg/ Dextrose 250 mls @ 10.319 mls/hr 11/07/23 11:32 11/08/23 04:16 IV 0.8 mcg/kg/hr TITRATE RAHUL 11.793 mls/hr Administration Protocol 0.7 MCG/KG/HR dexmedeTOMIDine in 0.9 % NaCL 400 mcg in 100 mls @ 2.948 mls/hr 11/07/23 12:00 11/08/23 04:17 Precedex IV 1 mcg/kg/hr TITRATE RAHUL 14.742 mls/hr Administration Protocol 0.2 MCG/KG/HR Objective Ventilator Parameters: Ventilator Settings FiO2 25 RT Vent Frequency 18 Ventilator Tidal Volume 380 Exhaled Vt/kg IBW 6 Positive End Expiratory 5 Pressure Inspiratory Phase Time 0.8 I:E Ratio 1:3.2 Patient Position HOB >= [address] scan - head: Radiologist's impression: no acute pathology Chest x-ray: Radiologist's impression: lungs clear, support devices in appropriate position Labs 11/07/23 00:15 11/07/23 00:15 Labs: Laboratory Results - last 24 hr 11/07/23 12:00 Nasal Screen MRSA (PCR) Not detected Exam Vital Signs (past 8 hours): - 11/07/23 23:00 11/07/23 23:00 11/07/23 23:30 Temperature 97.9 F Pulse Rate 61 60 Respiratory Rate 18 18 Blood Pressure 118/65 Pulse Oximetry 100 100 11/08/23 00:00 11/08/23 00:00 11/08/23 00:30 Temperature Pulse Rate 60 61 Respiratory Rate 18 18 Blood Pressure 108/68 Pulse Oximetry 99 99 11/08/23 01:00 11/08/23 01:00 11/08/23 01:30 Temperature Pulse Rate 60 61 Respiratory Rate 18 18 Blood Pressure 112/68 Pulse Oximetry 100 99 11/08/23 02:00 11/08/23 02:00 11/08/23 02:30 Temperature Pulse Rate 61 60 Respiratory Rate 18 18 Blood Pressure 112/76 Pulse Oximetry 100 99 11/08/23 03:00 11/08/23 03:00 11/08/23 03:30 Temperature Pulse Rate 60 61 Respiratory Rate 18 18 Blood Pressure 109/74 Pulse Oximetry 99 99 11/08/23 04:00 11/08/23 04:00 11/08/23 04:30 Temperature 97.8 F Pulse Rate 61 57 L Respiratory Rate 18 18 Blood Pressure 111/74 Pulse Oximetry 99 99 11/08/23 05:00 11/08/23 05:00 11/08/23 05:30 Temperature Pulse Rate 60 62 Respiratory Rate 18 18 Blood Pressure 112/75 Pulse Oximetry 99 99 11/08/23 06:00 11/08/23 06:00 Temperature Pulse Rate 61 Respiratory Rate 18 Blood Pressure 112/75 Pulse Oximetry 99 Fraction of Inspired Oxygen 40 Oxygen Delivery Method Mechanical Ventilation Oxygen Flow Rate 3 Narrative Exam Narrative: intubated, sedated, NAD Quality TeleICU Stress Ulcer Stress ulcer prophylaxis: yes Assessment & Plan Assessment and plan (1) Alcohol use disorder: Status: Acute (2) Alcohol intoxication: Status: Acute (3) Acute metabolic encephalopathy: Status: Acute (4) Polysubstance abuse: Status: Acute Assessment & Plan narrative: 1. Acute toxic encephaopathy secondary to polysubstance use - EtOH level 275 on ER arrival. Also positive for amphetamines, unclear if other substances ingested. - HYDRAULIC PRESS OPERATOR infection less likely based on clinical data/presentation - will attempt SAT today. would continue precedex gtt and turn off prop/fent. do SBT and see if patient can be extubated- - she is on minimal vent support and is only requiring ventilator for airway protection at this point - will need CIWA protocol - thiamine/MVI/FOlate recommended - consider psych and social work consults when extubated 2. Prolonged Qt - likely related to intoxication / substance use. Qtc 502 on initial EKG. - on tele this am qtc was 445 3. Hypokalemia - replete with IV for now, continue to monitor. Code: FULL DVT: Lovenox daily GI ppx: famotidine Time-Based Coding :: 30 in spent with patient and on the chart (including review of chart, obtaining history, exam, reviewing outside data, placing orders, documenting exam and treatment plan, and counseling patient) on [DATE].
[2023-11-08 06:57] LABS: Add Manual Diff / Slide Review NO; Basophils Absolute Auto 0 /uL (0-100); Basophils Percent Auto 0.4 % (0-2); Eosinophils Absolute Auto 200 /uL (0-450); Eosinophils Percent Auto 1.9 % (2-4); Hemoglobin 11.7 g/dL (12.0-16.0); Lymphocytes Absolute Auto 1500 /uL (1100-4500); Lymphocytes Percent Auto 15.2 % (25-40); Mean Corpuscular HGB Conc 34.5 % (30-36); Mean Corpuscular Hemoglobin 31.5 PG (26-34); Mean Corpuscular Volume 91.3 fL (80-100); Monocytes Absolute Auto 700 /uL (0-900); Neutrophils Absolute Auto 7300 /uL (1500-7000); Neutrophils Percent Auto 75.5 % (50-75); Platelet Count 218 X10^3/uL (150-400); Red Blood Cell Count 3.72 X10^6/uL (4.0-5.2); Red Cell Distribution Width 13.8 % (11.6-14.8); White Blood Cell Count 9.7 X10^3/uL (4.5-11.0)
[2023-11-08 07:09] LABS: Alanine Aminotransferase 12 IU/L (<35); Albumin 2.9 g/dL (3.5-5.0); Albumin Globulin Ratio 1.3 (1.0-2.8); Alkaline Phosphatase 75 U/L (38-126); Aspartate Aminotransferase 18 IU/L (14-36); BUN Creatinine Ratio 11.7 (6-22); Blood Urea Nitrogen 7 mg/dL (7-17); Calcium 7.9 mg/dL (8.4-10.2); Carbon Dioxide 20 mmol/L (22-32); Chloride 110 mmol/L (98-107); Estimated Glomerular Filt Rate > 60 mL/min (>60); Globulin 2.3 g/dL (1.7-4.1); Glucose 95 mg/dL (70-100); HEMOLYSIS < 15 (0-50); Potassium 3.8 mmol/L (3.4-5.1); Sodium 136 mmol/L (137-145); Total Protein 5.2 g/dL (6.3-8.2)
--- NOTE | 2023-11-08 07:22 | PC.NURSE ---
operations supervisor 2nd shift RN note pt remains intubated and sedated, opens eyes and reaches for ETT, aggitated with stimulation, sedation titrated to maintain RASS -2/-3, GUTIÉRREZ, shakes head yes and no to questions, VSS, SB/SR 50-60s, lungs clear and scant secretions, O2 sats >92%, OGT draining bile, r/c draining abmer/green urine, skin warm, abrasions and scattered bruises, x2 periph IV sites patent, bilat soft wrist restraints to maintain thearpy, mom, step dad and sister arrived overnight, family updated and sister stayed the night at bedside
--- NOTE | 2023-11-08 09:11 | PC.NURSE ---
Addendum entered by Vangie Gunn R.N. 11/08/23 15:45: Discharge ordered. IVs discontinued, telemetry removed. Pt tolerating PO intake. Voiding after catheter removal. Education provided to pt and family members. Pt wheeled via w/c to private vehicle at approximately 1530. Addendum entered by Vangie Gunn R.N. 11/08/23 10:43: Pt stating, I want to leave. States, The hospital makes me sad. Pt tearful. Sister at bedside. Provider notified. Risks of leaving AMA discussed with pt. Pt agreeable to stay but states, not for a long time. I can't stay here all day. Provider notified. Original Note: SAT initiated. Pt able to respond to commands, shake head yes/no, thumbs up, open eyes, maintain eye contact. Attempting to pull ET tube. eICU provider Dr. Guillaume Matthews on screen remotely. Sedation titrated (See MAR). SBT initiated with this RN and RT in room. Pt extubated at approximately 0900 to RA. Strong cough present, clearing own secretions. Strong swallow. C/o sore throat, provider notified. O2 98% on RA. Vitals WDL. Care ongoing.
[2023-11-08] MEDS: BENZOCAINE/MENTHOL 1 LOZ PKT 1 EACH PO ×2 (09:40→10:56)
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
[2023-11-08] MEDS: LORazepam 0.5 MG TABLET PO (13:46)
--- NOTE | 2023-11-08 13:52 | P.DS_ITS ---
History of Present Illness History of Present Illness Date Patient Seen: 11/08/23 Time Patient Seen: 13:52 Chief complaint: STEFAN Narrative: Patient unable to participate in history due to her current sedation. Per ER Provider, 23-year-old female with unknown past medical history presents as an STEFAN with law enforcement. Patient was reportedly found outside rolling around on the ground and screaming. She was extremely agitated and required numerous law enforcement personnel to restrain the patient. She continued to be extremely agitated and not following commands and so EMS personnel administered 300 mg of IM ketamine for sedation. Patient arrived extremely somnolent, not following commands. Initially arrived as a Marcelle Sanford This is a 23 F arrived as above. In reviewing the police report patient was stumbling in the street, walking around without shoes on and when police responded she was combative, smelled of intoxicants, and was falling repeatedly. She was brought in for intoxication, was given ketamine, and ultimately intubated in the emergency room for airway protection. She was still combative a few hours later with sedation vacation. She was only on propofol, was still combative on arrival to the ICU. Placed on fentanyl and precedex infusions as well with improvement in sedation. Outpatient medications available for review were last fill in 07/2023, nothing recent. List includes, duloxetine, buproprion, hydroxyzine, lorazepam, and propranolol. Discharge Providers Provider Date of admission: 11/07/23 08:17 Discharge Date: 11/08/23 Primary care physician: [facility] Consults: 11/07/23 11:58 Consult to Tele-mold insert changer Routine Comment: Consulting Provider: [employer] Reason for consultation: Transmission System Operator services Discharge provider: Bravo Castro DO Summary Hospital Course Discharge Diagnosis: 1. Acute toxic encephaopathy secondary to polysubstance use 2. Prolonged Qt 3. Hypokalemia Hospital Course: This is a 23 year old female who was admitted after she was intubated for airway protection after high levels of sedation were required for combativeness in the emergency room. Additional history was obtained over the course of her admission from family members. Patient does not have any substance abuse issues previously. She was out drinking at a local tavern, she was possibly given a substance from a drink she received or given synthetic marijuana / spice instead of what she presumed was marijuana. Urine drug screen was positive for amphetamines of which the patient denied knowingly taking as well. Her alcohol level was also 275 on arrival. She denied prior withdrawal symptoms in the past. Given her severe agitation synthetic cannibinoid screening was sent from her initial urine drug screen as well, which is a send out test and likely will return in about a week. She required fentantly, propofol, and precedex for sedation initially. She remained intubated for approximately 24 hours and was extubated after passing sedation vacation and breathing trial the following morning. Her mentation was back to baseline according to family, and she did not recall any of the events leading to her presentation. She was tearful, anxious and scared but was not seemingly a threat to herself or others and had a supportive family with her. She did have a significant sore throat after extubation, but had no stridor and was able to tolerate pills and oral intake. After discussion with the patient and family, she elected for discharge home. She remained anxious after extubation, and improved with lorazepam which the patient wished to trial before discharge due to concern it may slow her breathing which she tolerated well. She was given a small amount of lorazepam at discharge to help with anixety in the short term. She was counseled on traumatic experiences, and is recommended to follow up with a psychiatric provider or counselor should she continue to struggle after this event. She was counseled on return precautions regarding her sore throat, and expected improvement after intubation. Time Spent with Patient Time spent: Greater than 30 minutes Exam Vital Signs (past 8 hours): - 11/08/23 06:00 11/08/23 06:00 11/08/23 06:30 Temperature Pulse Rate 61 59 L Respiratory Rate 18 18 Blood Pressure 112/75 Pulse Oximetry 99 99 Oxygen Delivery Method Oxygen Flow Rate 11/08/23 07:00 11/08/23 07:00 11/08/23 07:30 Temperature Pulse Rate 59 L 58 L Respiratory Rate 18 18 Blood Pressure 112/71 Pulse Oximetry 99 99 Oxygen Delivery Method Oxygen Flow Rate 11/08/23 08:00 11/08/23 08:00 11/08/23 08:00 Temperature 97.4 F L Pulse Rate 57 L Respiratory Rate 18 Blood Pressure 110/73 Pulse Oximetry 99 Oxygen Delivery Method Oxygen Flow Rate 11/08/23 08:30 11/08/23 08:30 11/08/23 09:00 Temperature Pulse Rate 68 Respiratory Rate 20 Blood Pressure 123/64 Pulse Oximetry 98 98 Oxygen Delivery Method Oxygen Flow Rate 11/08/23 09:00 11/08/23 09:00 11/08/23 12:12 Temperature Pulse Rate 73 Respiratory Rate 14 18 Blood Pressure Pulse Oximetry 97 98 Oxygen Delivery Method Room Air Oxygen Flow Rate 0 Fraction of Inspired Oxygen 40 Oxygen Delivery Method Room Air Oxygen Flow Rate 0 Objective Labs 11/08/23 06:26 11/08/23 06:26 Labs: Laboratory Results - last 24 hr 11/08/23 06:26 WBC 9.7 RBC 3.72 L Hgb 11.7 L Hct 34.0 L MCV 91.3 MCH 31.5 MCHC 34.5 RDW 13.8 Plt Count 218 Neut % (Auto) 75.5 H D Lymph % (Auto) 15.2 L D [place] % (Auto) 7.0 Eos % (Auto) 1.9 L Baso % (Auto) 0.4 Neut # (Auto) 7300 H Lymph # (Auto) 1500 [place] # (Auto) 700 Eos # (Auto) 200 Baso # (Auto) 0 Sodium 136 L Potassium 3.8 Chloride 110 H Carbon Dioxide 20 L BUN 7 Creatinine 0.60 Estimated GFR > 60 BUN/Creatinine Ratio 11.7 Glucose 95 Calcium 7.9 L Total Bilirubin 1.0 AST 18 ALT 12 Alkaline Phosphatase 75 Total Protein 5.2 L Albumin 2.9 L Globulin 2.3 Albumin/Globulin Ratio 1.3 PFSH Social History household members: none Discharge Plan Discharge Plan Patient Disposition: Home Provider Discharge Comment: You were admitted to the hosptial with agitation, likely due to an unknown substance. K2 testing is pending and will likely take about a week. I did send some anxiety medications to your pharmacy. Please reach out to your primary care provider should you continue to have throat pain, anxiety or trauma, or other symptoms after discharge. Things to return to the emergency room include struggling to breathe or inability to tolerate any oral intake. Discharge orders & Medications Prescriptions: New lorazepam 0.5 mg tablet 0.5 mg PO BID PRN (Reason: anxiety) 30 Days Qty: 20 0RF Follow up/Referrals: [facility], [Other] [facility], [Other] Diet/Activity/Treatments Diet: Diet as Tolerated and Regular Diet comment: Advance slowly and as tolerated with sore throat Activity: No restrictions Visit Report/Discharge Packet Instructions: DI for Alcohol Poisoning Stand Alone Forms: Patient Portal/API, Stroke Signs & Symptoms Discharge Data Primary Care Provider: [facility],
== END 2023-11-08 15:30 | disposition home or self-care (01) | DRG 917 ==
LOC: ED 07:13 → AC 08:18 → ICU 11:14
PROVIDERS: Admitting Provider Internal Medicine; Emergency Provider Emergency Medicine; Referring Provider Emergency Medicine; Visit Provider Internal Medicine
DX: T43.621A Poisoning by amphetamines, accidental (unintentional), initial encounter (principal); G92.8 Other toxic encephalopathy; R94.31 Abnormal electrocardiogram [ECG] [EKG]; E87.6 Hypokalemia; F10.929 Alcohol use, unspecified with intoxication, unspecified; F41.9 Anxiety disorder, unspecified; F15.988 Other stimulant use, unspecified with other stimulant-induced disorder; Y90.8 Blood alcohol level of 240 mg/100 ml or more
CPT/HCPCS: 36415; 36600; 70450; 71045; 80053; 80305; 80320; 80329; 81003; 81025; 82550; 82805; 83605; 85025; 87797; 93005; 94002; 94799; 96365; 96375; 99285; 99291; G0480; J1650; J2310; J2470; J2704; J3010

== ENCOUNTER → 2024-07-26 16:44 | Outpatient (CLI) | payer OTHER, SELFPAY ==
[2023-11-07 09:24] VITALS: BMI 25.6
[2023-11-08 03:00] VITALS: RESP 18
[2023-11-08 08:30] VITALS: PULSE 70; RESP 12; O2SAT 98
--- NOTE | 2024-07-26 16:46 | DI.RAD.S_ITS ---
PROCEDURE: XR CHEST 2V INDICATIONS: Left lower chest pain TECHNIQUE: 2 views of the chest were acquired. COMPARISON: [facility], , XR CHEST 1V, 11/07/2023, 1:11. FINDINGS: Surgical changes and devices: None. Lungs and pleura: Lungs are clear. No pleural effusions or pneumothorax. Mediastinum: Mediastinal contours are normal. Heart size is normal. Bones and chest wall: No suspicious bony abnormalities. Soft tissues appear unremarkable. IMPRESSION: No acute cardiopulmonary pathology. Dictated by: Sanjay Antunez M.D. on 07/26/2024 at 17:26 Approved by: Sanjay Antunez M.D. on 07/26/2024 at 17:26
== END ==
LOC: RAD 16:45
PROVIDERS: Referring Provider Registered Nurse; Visit Provider Registered Nurse
DX: R07.9 Chest pain, unspecified (principal)
CPT/HCPCS: 71046